=== PATIENT | female | born 1940 | race Caucasian/White ===

== ENCOUNTER 2021-08-08 21:41 | Emergency (ER) | payer OTHER ==
[~2021-08-08] VITALS: Ht 172.7 cm; Wt 90.7 kg
[2021-08-08 22:00] VITALS: BP 157/86
[2021-08-08 23:34] LABS: Albumin 3.3 g/dL (3.4-5.0); BUN/Creatinine Ratio 22.9; Calcium 9.8 mg/dL (8.5-10.1); Magnesium 1.9 mg/dL (1.6-2.6); Potassium 3.4 mmol/L (3.5-5.1)
[2021-08-08 23:35] LABS: INR 1.06 (0.9-1.15)
[2021-08-08 23:36] LABS: Bilirubin, Total 0.4 mg/dL (0.2-1.0); Total Protein 6.2 g/dL (6.4-8.2)
== END 2021-08-09 04:32 | disposition home or self-care (01) ==
LOC: ER 21:41 → EDBD 21:41 → ER 08-09 04:32
DX: R00.2 Palpitations (principal); E78.5 Hyperlipidemia, unspecified; E11.9 Type 2 diabetes mellitus without complications; I10 Essential (primary) hypertension; I48.91 Unspecified atrial fibrillation
CPT/HCPCS: 36415; 71045; 80053; 83735; 84484; 85610; 85730; 93005

== ENCOUNTER 2024-09-24 01:20 | Emergency (ER) | payer OTHER ==
[~2024-09-24] VITALS: Ht 167.6 cm; Wt 95.0 kg
--- NOTE | 2024-09-24 01:33 | ECG ---
[facility] Test Date: 2024-09-24 Test Time: 01:21:28 Pat Name: ZAMZAM STATHAM Department: ED Room: Gender: F Taker Off: TAINA : 1940 Requested By: DAVID COOPER Order Number: [id number] Reading MD: Measurements Intervals [place] Rate: 72 P: 0 MI: 0 QRS: 83 QRSD: 94 T: 25 QT: 424 QTc: 465 Interpretive Statements Atrial flutter Borderline right axis deviation ST depr, consider ischemia, inferior leads Baseline wander in lead(s) V5 Please click the below link to view image of tracing.
--- NOTE | 2024-09-24 01:40 | ED.PDOC ---
HPI Comments 84 year old female presents to the ED via EMS with a chief complaint of chest pain onset today (09/24/24). Per EMS, patient was asleep, woke up due to chest pain, described as a flutter sensation, pain was 4/10. In route to ED, EKG showed a-fib with 70-90 bpm, BP 180/83. Patient states upon ED arrival, chest pain has resolved. She is currently on Lasix, Pradaxa. PMHx a-fib, HTN, HLD, DM insulin dependent. Denies shortness of breath, nausea, vomiting, cough, congestion, fever, chills, dizziness, numbness/tingling. No other symptoms or modifying factors present at this time. Time Seen by MD: :25 Reviewed Notes: Medications, Allergies Allergies: Coded Allergies: NO KNOWN ALLERGIES (Unverified , 09/24/24) Information Source: Patient, Emergency Med Personnel Mode of Arrival: EMS Severity: Moderate Timing: Hours Duration: Since onset Prehospital treatment: None Location: Chest (L) Radiation: No Radiation Quality: Other Onset: While Asleep Cardiac Risk Factors: Hyperlipidemia, HTN, Diabetes PE Risk Factors: None History of: None Modifying Factors: Nothing Vital Signs Vital Signs Date Time Temp Pulse Resp B/P (MAP) Pulse Ox O2 Delivery O2 Flow Rate FiO2 09/24/24 04:00 70 17 158/62 (94) 94 09/24/24 02:07 Room Air* 0 21 09/24/24 01:56 98.0 98.0 Physical Exam PHYSICAL EXAM: General: Awake, alert and oriented. No acute distress. Skin: Skin in warm, dry and intact. Appropriate color for ethnicity. HEENT: The head is normocephalic and atraumatic. Conjunctivae are clear without exudates or hemorrhage. Sclera is non-icteric. EOM are intact. No signs of nystagmus. Eyelids are normal in appearance without swelling or lesions. Oral mucosa is pink and moist Neck: The neck is supple with normal range of motion. No JVD. Cardiac: Heart rate and rhythm are normal. No murmurs, gallops, or rubs are auscultated. Respiratory: No signs of respiratory distress. Lung sounds are clear in all lobes bilaterally without rales, rhonchi, or wheezes. Abdominal: Abdomen is soft, non-tender without distention, guarding or rigidity. Bowel sounds are present and normoactive in all four quadrants. Extremities: Upper and lower extremities are atraumatic in appearance without deformity or edema. Neurological: The patient is awake, alert and oriented to person, place, and time with normal speech. Speech is clear. There is no facial asymmetry. Psychiatric: Appropriate mood and affect. Good judgement and insight. 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 Was a procedure done?: No CP Differential Dx Differential Diagnosis: Other (Differential diagnoses considered include acute ischemic coronary syndrome, aortic dissection, cardiac tamponade, mediastinitis, pulmonary embolus, pneumothorax, tension pneumothorax, esophageal rupture, coronary artery vasospasm, myocarditis, pericarditis, pneumonia, pulmonary edema, esophageal tear, pancreatitis, aortic stenosis, dilated cardiomyopathy, hypertrophic cardiomyopathy, mitral valve prolapse, malignancy, pleuritis, pneumomediastinum, primary pulmonary hypertension, cholecystitis, esophageal spasm, esophagus, gastritis, GERD, peptic ulcer disease, costochondritis, fibromyalgia, rib fracture, herpes zoster, radicular syndromes, thoracic outlet syndrome, somatization.) X-Ray, Labs, Meds, VS Vital Signs Date Time Temp Pulse Resp B/P (MAP) Pulse Ox O2 Delivery O2 Flow Rate FiO2 09/24/24 04:00 70 17 158/62 (94) 94 09/24/24 02:23 58 09/24/24 02:07 63 17 94 Room Air* 0 21 09/24/24 01:56 98.0 66 16 152/57 (88) 94 98.0 09/24/24 01:40 72 09/24/24 01:25 97.8 113 18 180/83 (115) 96 97.8 09/24/24 01:21 72 Lab Test 09/24/24 04:46 09/24/24 02:33 09/24/24 01:35 Range/Units Troponin I High Sensitivity 38 *H 22 19 </=34 ng/L White Blood Count 5.7 4.4-10.8 10^3/uL Red Blood Count 4.19 4.0-5.20 10^6/uL Hemoglobin 11.7 L 12.2-16.2 g/dL Hematocrit 35.2 L 36.0-46.0 % Mean Corpuscular Volume 84.0 80.0-100.0 fL Mean Corpuscular Hemoglobin 27.9 L 28.0-32.0 pg Mean Corpuscular Hemoglobin Concent 33.2 32.0-36.0 g/dL Red Cell Distribution Width 15.2 H 11.8-14.3 % Platelet Count 169 140-450 10^3/uL Mean Platelet Volume 8.0 6.9-10.8 fL Neutrophils (%) (Auto) 71.7 37.0-80.0 % Lymphocytes (%) (Auto) 16.3 10.0-50.0 % Monocytes (%) (Auto) 8.0 0.0-12.0 % Eosinophils (%) (Auto) 3.4 0.0-7.0 % Basophils (%) (Auto) 0.6 0.0-2.0 % Neutrophils # (Auto) 4.1 1.6-8.6 10 ^3/uL Lymphocytes # (Auto) 0.9 0.4-5.4 10 ^3/uL Monocytes # (Auto) 0.5 0-1.3 10 ^3/uL Eosinophils # (Auto) 0.2 0-0.8 10 ^3/uL Basophils # (Auto) 0 0-0.2 10 ^3/uL Nucleated Red Blood Cells 0.0 % Sodium Level 145 136-145 mmol/L Potassium Level 3.6 3.5-5.1 mmol/L Chloride Level 108 H 98-107 mmol/L Carbon Dioxide Level 28 20-31 mmol/L Anion Gap 9 5-15 Blood Urea Nitrogen 19 9-23 mg/dL Creatinine 1.01 0.550-1.02 mg/dL Glomerular Filtration Rate Calc 55 >90 mL/min BUN/Creatinine Ratio 18.8 10.0-20.0 Serum Glucose 130 H 74-106 mg/dL Calcium Level 11.2 H 8.7-10.4 mg/dL B-Type Natriuretic Peptide 111.74 0-100 pg/mL PATIENT: VALERIE JUDGE: [id number]: [id number] : 1940 LOC: ER ROOM / BED: / AGE / SEX: 84 / F ADM STATUS: REG ER SERVICE 0139 ORDERING PHYSICIAN: DAVID COOPER MD PROCEDURE(s): CXR1 - CHEST XRAY 1 VIEW REASON: cp ORDER NUMBER(s): [id number], ACCESSION NUMBER(s): [id number] CHEST RADIOGRAPH Indication: cp Technique: Single frontal view of the chest was obtained COMPARISON: CHEST PORTABLE on DOS: 08/08/21, CXRP on DOS: 08/08/21 FINDINGS: Lines and Tubes: None Lungs: Mild diffuse increased prominence of the pulmonary vasculature. No evid ence of focal consolidation. Pleura: No effusion. No pneumothorax. Cardiomediastinal contours: Cardiomegaly. Atherosclerotic vascular calcifications. Bones: Unremarkable IMPRESSION: 1. No acute disease. Mild diffuse increased prominence of the pulmonary vasculature. 2. Cardiomegaly. ATED BY: SHANTANU SOLIS MD DICTATED DATE/TIME: 09/24/24207 SIGNED BY: SHANTANU SOLIS MD SIGNED DATE/TIME: 09/24/24207 CC: Time of 1ST Reevaluation: 01:55 Reevaluation 1ST: Unchanged Patient Education/Counseling: Need For Follow Up Family Education/Counseling: No Family Present SEPSIS Sepsis Screen Physician Orders Electrocardigram (09/24/24 04:25) Chest Xray 1 View (09/24/24 01:39) Vital Signs Q1HR (09/24/24 01:39) Imaging Transfer Request (09/24/24 05:16) Vital Signs Date Time Temp Pulse Resp B/P (MAP) Pulse Ox O2 Delivery O2 Flow Rate FiO2 09/24/24 04:00 70 17 158/62 (94) 94 09/24/24 02:23 58 09/24/24 02:07 63 17 94 Room Air* 0 21 09/24/24 01:56 98.0 66 16 152/57 (88) 94 98.0 09/24/24 01:40 72 09/24/24 01:25 97.8 113 18 180/83 (190) 96 97.8 09/24/24 01:21 72 Laboratory Tests Test 09/24/24 01:35 White Blood Count 5.7 10^3/uL (4.4-10.8) Departure 1 Departure Time of Disposition: 03:15 Impression: Primary Impression: Chest pain Disposition: 02 SHORT TERM HOSPITAL Comments MDM: 84-year-old female with multiple risk factors with chest pain @[address] Tavares at [facility] (Case #[id number]) Extensive evaluation was performed in attempt to identify or rule out: (See differential diagnosis section) The following tests were ordered, and results were reviewed by me and discussed with patient: (See diagnostic results section) The following test were independently interpreted by me: EKG I reviewed and agreed with the following test results read by other providers: Chest x-ray I reviewed the following notes from the pt's past medical encounters: Encounter July 2021 for weakness Additional information was gathered from interviewing the following independent historians: EMS personnel Discussion of management or test interpretation with external physician/other qualified health hospice patient care secretary: Yes Addressed an acute or chronic illness that poses a threat to life or bodily function: Chest pain Decision regarding hospitalization or escalation of hospital level of care: Risk and benefits of admission for further treatment of patient's condition was considered. Due to patient's current clinical condition, high risk of decline and poor outcome if discharged and need for further inpatient management and monitoring, patient will be admitted to the hospital. Drug therapy requiring intensive monitoring for toxicity: N/A Parenteral controlled substances: N/A Decision regarding elective major surgery with identified patient or procedure risk factors: N/A Decision regarding emergency major surgery: N/A Decision not to resuscitate or to de-escalate care because of poor prognosis: N/A Diagnosis or treatment significantly limited by social determinants of health: N/A Critical Care Note Critical Care Time?: No Stability Stability form required: No Heart Score Heart Score: Heart Score Response (Comments) Value History Moderate Suspicious 1 EKG Normal 0 Age >65 2 Risk Factors >3 or Hx ASHD 2 Troponin Normal limit 0 Total 5 I personally scribed for DAVID COOPER MD ([email or web address]) on 09/24/24 at 01:40. Electronically submitted by Glenda Yanez ([email or web address]). DAVID COOPER MD Sep 24, 2024 01:40
[2024-09-24 01:50] LABS: Hematocrit 35.2 % (36.0-46.0); Hemoglobin 11.7 g/dL (12.2-16.2); Mean Corpuscular Hemoglobin 27.9 pg (28.0-32.0); Mean Corpuscular Volume 84.0 fL (80.0-100.0); Nucleated Red Blood Cells % 0.0 %
[2024-09-24 02:02] LABS: Calcium 11.2 mg/dL (8.7-10.4); Chloride 108 mmol/L (98-107); Potassium 3.6 mmol/L (3.5-5.1); Sodium 145 mmol/L (136-145)
[2024-09-24 02:03] LABS: Anion Gap 9 (5-15); Carbon Dioxide 28 mmol/L (20-31)
[2024-09-24 02:07] VITALS: PULSE 63; RESP 17; O2SAT 94
[2024-09-24 02:08] LABS: Glucose 130 mg/dL (74-106)
--- NOTE | 2024-09-24 02:10 | DVH ---
CHEST RADIOGRAPH Indication: cp Technique: Single frontal view of the chest was obtained COMPARISON: CHEST PORTABLE on DOS: 08/08/21, CXRP on DOS: 08/08/21 FINDINGS: Lines and Tubes: None Lungs: Mild diffuse increased prominence of the pulmonary vasculature. No evidence of focal consolid ation. Pleura: No effusion. No pneumothorax. Cardiomediastinal contours: Cardiomegaly. Atherosclerotic vascular calcifications. Bones: Unremarkable IMPRESSION: 1. No acute disease. Mild diffuse increased prominence of the pulmonary vasculature. 2. Cardiomegaly.
[2024-09-24 03:52] LABS: BUN/Creatinine Ratio 18.8 (10.0-20.0); Blood Urea Nitrogen 19 mg/dL (9-23)
--- NOTE | 2024-09-24 05:09 | ECG ---
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
[2024-09-24 06:19] VITALS: BP 165/54; PULSE 70; RESP 18; TEMP 98.1; O2SAT 95
== END 2024-09-24 06:54 | disposition short-term general hospital (02) ==
LOC: EDBD 01:20 → ER 01:20
DX: R07.89 Other chest pain (principal); I48.91 Unspecified atrial fibrillation; E11.9 Type 2 diabetes mellitus without complications; E78.5 Hyperlipidemia, unspecified; I10 Essential (primary) hypertension; Z79.899 Other long term (current) drug therapy; Z79.4 Long term (current) use of insulin; Z79.01 Long term (current) use of anticoagulants
CPT/HCPCS: 36415; 71045; 80048; 83880; 84484; 85025; 93005

== ENCOUNTER 2024-12-03 06:22 | Inpatient (IN) | payer OTHER ==
[~2024-12-03] VITALS: Ht 175.3 cm; Wt 120.7 kg
[2024-12-03] VITALS (16 sets, daily range): BP systolic 105–125; BP diastolic 55–62; PULSE 60–95; RESP 14–24; TEMP 97.3–97.6; O2SAT 84–100
--- NOTE | 2024-12-03 06:30 | ED.PDOC ---
SOB-HPI HPI Comments 84 y/o F, with PMHx of AFib, DM, HLD, and HTN is BIBA for CC of shortness of breath. EMS reports, patient is coming from home where she c/o shortness of breath sudden onset, this morning (12/03/24) following trying to vomiting. Patient relays, she had x1 episode of emesis appearing to be food content related. Patient endorses, second episode of dry heaving feeling as if "vomit is stuck in my throat". Patient denies chest pain, cough, sore-throat, fever, or palpitations. No other symptoms or modifying factors are present at this time. 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 Hx Family History Family History: Reviewed,noncontributory to illness Social History Smoker: Non-Smoker Alcohol: Denies ETOH Use Drugs: Denies Drug Use Lives In: Home Constitutional: denies: chills, diaphoresis, fatigue, fever, malaise, sweats, weakness, others EENTM: denies: blurred vision, double vision, ear bleeding, ear discharge, ear drainage, ear pain, ear ringing, eye pain, eye redness, hearing loss, mouth pain, mouth swelling, nasal discharge, nose bleeding, nose congestion, nose pain, photophobia, tearing, throat pain, throat swelling, voice changes, others Respiratory: reports: shortness of breath; denies: cough, hemoptysis, orthopnea, SOB at rest, SOB with excertion, stridor, wheezing, others Cardiovascular: denies: chest pain, dizzy spells, diaphoresis, Dyspnea on exertion, edema, irregular heart beat, left arm pain, lightheadedness, palpitations, PND, syncope, others Gastrointestinal: denies: abdomen distended, abdominal pain, blood streaked bowels, constipated, diarrhea, dysphagia, difficulty swallowing, hematemesis, melena, nausea, poor appetite, poor fluid intake, rectal bleeding, rectal pain, vomiting, others Genitourinary: denies: abnormal vagina bleeding, burning, dyspareunia, dysuria, flank pain, frequency, hematuria, incontinence, pain, , vagina discharge, urgency, others Neurological: denies: dizziness, fainting, headache, left sided numbness, left sided weakness, numbness, paresthesia, pre-existing deficit, right sided numbness, right sided weakness, seizure, speech problems, tingling, tremors, weakness, others Musculoskeletal: denies: back pain, gout, joint pain, joint swelling, muscle pain, muscle stiffness, neck pain, others Integumetry: denies: bruises, change in color, change in hair/nails, dryness, laceration, lesions, lumps, rash, wounds, others Allergic/Immunocompromised: denies: Difficulty Healing, Frequent Infections, Hives, Itching, others Hematologic/Lymphatic: denies: anemia, blood clots, easy bleeding, easy bruising, swollen glands, others Endocrine: denies: excessive hunger, excessive sweating, excessive thirst, excessive urination, flushing, intolerance to cold, intolerance to heat, unexplained weight gain, unexplained weight loss, others Psychiatric: denies: anxiety, bipolar disorder, depression, hopeless, panic disorder, schizophrenia, sleepless, suicidal, others All Other Systems: Reviewed and Negative Physical Exam General Appearance: No Apparent Distress, Obese HEENT: Normal ENT Inspection, Pharynx Normal Neck: Full Range of Motion, Non-Tender, Normal, Normal Inspection Respiratory: Chest Non-Tender, Lungs Clear, No Accessory Muscle Use, No Re spiratory Distress, Normal Breath Sounds Cardiovascular: No Edema, No Murmur, No Gallop, Normal Peripheral Pulses, Regular Rate/Rhythm Breast Exam: Deferred Gastrointestinal: No Organomegaly, Non Tender, No Pulsatile Mass, Normal Bowel Sounds, Soft Genitalia: Deferred Pelvic: Deferred Rectal: Deferred Extremities: No calf tenderness, Normal capillary refill, Normal inspection, Normal range of motion, Non-tender, No pedal edema Musculoskeletal : Apperance: Normal Neurologic: Alert, industrial 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 Was a procedure done?: No Differential Dx Differential Diagnosis: Asthma, Bronchitis, Pneumonia, Pulmonary Embolism, Sinusitis, Pharyngitis, URI X-Ray, Labs, Meds, VS Vital Signs Date Time Temp Pulse Resp B/P (MAP) Pulse Ox O2 Delivery O2 Flow Rate FiO2 12/03/24 07:25 81 23 96 Room Air* 0 21 12/03/24 07:25 97.6 81 23 152/89 (110) 96 97.6 12/03/24 06:47 98.0 86 18 155/95 (115) 96 98.0 12/03/24 06:47 86 18 96 Room Air* 0 21 12/03/24 06:25 97.6 92 20 150/68 94 97.6 12/03/24 06:25 87 Lab Test 12/03/24 07:45 12/03/24 06:50 Range/Units Troponin I High Sensitivity 289 *H 172 *H </=34 ng/L White Blood Count 6.5 4.4-10.8 10^3/uL Red Blood Count 4.16 4.0-5.20 10^6/uL Hemoglobin 11.6 L 12.2-16.2 g/dL Hematocrit 34.6 L 36.0-46.0 % Mean Corpuscular Volume 83.2 80.0-100.0 fL Mean Corpuscular Hemoglobin 27.8 L 28.0-32.0 pg Mean Corpuscular Hemoglobin Concent 33.4 32.0-36.0 g/dL Red Cell Distribution Width 15.1 H 11.8-14.3 % Platelet Count 168 140-450 10^3/uL Mean Platelet Volume 8.4 6.9-10.8 fL Neutrophils (%) (Auto) 82.7 H 37.0-80.0 % Lymphocytes (%) (Auto) 10.9 10.0-50.0 % Monocytes (%) (Auto) 4.4 0.0-12.0 % Eosinophils (%) (Auto) 1.6 0.0-7.0 % Basophils (%) (Auto) 0.4 0.0-2.0 % Neutrophils # (Auto) 5.4 1.6-8.6 10 ^3/uL Lymphocytes # (Auto) 0.7 0.4-5.4 10 ^3/uL Monocytes # (Auto) 0.3 0-1.3 10 ^3/uL Eosinophils # (Auto) 0.1 0-0.8 10 ^3/uL Basophils # (Auto) 0 0-0.2 10 ^3/uL Nucleated Red Blood Cells 0.1 % Sodium Level 142 136-145 mmol/L Potassium Level 4.1 3.5-5.1 mmol/L Chloride Level 107 98-107 mmol/L Carbon Dioxide Level 24 20-31 mmol/L Anion Gap 11 5-15 Blood Urea Nitrogen 19 9-23 mg/dL Creatinine 1.06 H 0.550-1.02 mg/dL Glomerular Filtration Rate Calc 51 >90 mL/min BUN/Creatinine Ratio 17.9 10.0-20.0 Serum Glucose 321 H 74-106 mg/dL Calcium Level 11.0 H 8.7-10.4 mg/dL [place] [id number] Ph: [phone] DIAGNOSTIC IMAGING Diagnostic Imaging Report : [id number] Signed PATIENT: ZAMZAM JUDGE ACCT: [id number] UNIT: [id number] : 1940 LOC: ER ROOM / BED: / AGE / SEX: 84 / F ADM STATUS: REG ER SERVICE 6 ORDERING PHYSICIAN: BERRY GRAFF MD PROCEDURE(s): CXRP - CHEST PORTABLE REASON: sob ORDER NUMBER(s): [id number], ACCESSION NUMBER(s): [id number] CHEST RADIOGRAPH Indication: sob Technique: Single frontal view of the chest was obtained COMPARISON: XY CHEST XRAY 1 VIEW on DOS: 09/24/24, CHEST PORTABLE on DOS: 08/08/21, CXRP on DOS: 08/08/21 FINDINGS: Lines and Tubes: None Lungs: Mild diffuse increased prominence of the pulmonary vasculature without evidence of focal consolidation. Pleura: No effusion. No pneumothorax. Cardiomediastinal contours: Cardiomegaly. Bones: Unremarkable IMPRESSION: 1. Cardiomegaly with mild pulmonary vascular congestion. ATED BY: SHANTANU SOLIS MD DICTATED DATE/TIME: 12/03/24654 SIGNED BY: SHANTANU SOLIS MD SIGNED DATE/TIME: 12/03/24 0655 CC: Time of 1ST Reevaluation: 07:05 Reevaluation 1ST: Unchanged Patient Education/Counseling: Diagnosis, Treatment Family Education/Counseling: No Family Present SEPSIS Sepsis Screen Physician Orders Chest Portable (12/03/24 06:27) Troponin-I Hs (12/03/24 09:27) Electrocardigram (12/03/24 07:27) Electrocardigram (12/03/24 09:27) * Cardiology Consult (12/03/24 08:34) Vital Signs Date Time Temp Pulse Resp B/P (MAP) Pulse Ox O2 Delivery O2 Flow Rate FiO2 12/03/24 07:25 81 23 96 Room Air* 0 21 12/03/24 07:25 97.6 81 23 152/89 (110) 96 97.6 12/03/24 06:47 98.0 86 18 155/95 (115) 96 98.0 12/03/24 06:47 86 18 96 Room Air* 0 21 12/03/24 06:25 97.6 92 20 150/68 94 97.6 12/03/24 06:25 87 Laboratory Tests Test 12/03/24 06:50 White Blood Count 6.5 10^3/uL (4.4-10.8) Departure 1 Departure Time of Disposition: 09:01 ([place] Authorization to Admit at [facility]: [id number] Patient presented with shortness of breath that was concerning for possible STEMI, ACS, PE, Pneumonia, Muscle Strain, COPD, Dissection. Data: 1. I ordered and reviewed the result of at least 3 labs including a CBC, BMP, and Troponin. 2. I independently interpreted the following tests: EKG which shows sinus arrhythmia and Chest X-ray which shows vascular congestion.Risk:This patient has a high risk of morbidity due to further diagnostic testing or treatment and may suffer from an acute cardiac or respiratory disorder. Workup reveals concern for ACS and patient should be admitted for further workup and possible expert consultation. ) Impression: Primary Impression: Shortness of breath Additional Impression: Elevated troponin Disposition: ADMITTED INPATIENT Admit to: [facility] Condition: Guarded Critical Care Note Critical Care Time?: Yes Critical care comment: Acute chest pain Authorized and Performed by: Berry Graff MD Total critical care time: Approximately 39 minutes Due to a high probability of clinically significant, life threatening deterioration, the patient required my highest level of preparedness to interven e emergently and I personally spent this critical care time directly and personally managing the patient. This critical care time included obtaining a history; examining the patient; pulse oximetry; ordering and review of studies; arranging urgent treatment with development of a management plan; evaluation of patient's response to treatment; frequent reassessment; and, discussions with other providers. This critical care time was performed to assess and manage the high probability of imminent, life-threatening deterioration that could result in multi-organ failure. It was exclusive of separately billable procedures and treating other patients and teaching time. Please see my other sections and the rest of the note for further information on patient assessment and treatment. Stability Stability form required: No Heart Score Heart Score: Heart Score Response (Comments) Value History Moderate Suspicious 1 EKG N/A 0 Age >65 2 Risk Factors 1 or 2 risk factors 1 Troponin N/A 0 Total 4 I personally scribed for BERRY GRAFF MD ([email or web address]) on 12/03/24 at 06:30. Electronically submitted by Goldie Hutton ([email or web address]). I personally scribed for BERRY GRAFF MD ([email or web address]) on 12/03/24 at 06:41. Electronically submitted by Goldie Hutton ([email or web address]). I personally scribed for BERRY GRAFF MD ([email or web address]) on 12/03/24 at 06:57. Electronically submitted by Goldie Hutton ([email or web address]). I personally scribed for BERRY GRAFF MD ([email or web address]) on 12/03/24 at 07:01. Electronically submitted by Goldie Hutton ([email or web address]). BERRY GRAFF MD Dec 03, 2024 06:30
--- NOTE | 2024-12-03 06:57 | ECG ---
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
--- NOTE | 2024-12-03 06:58 | DVH ---
CHEST RADIOGRAPH Indication: sob Technique: Single frontal view of the chest was obtained COMPARISON: XY CHEST XRAY 1 VIEW on DOS: 09/24/24, CHEST PORTABLE on DOS: 08/08/21, CXRP on DOS: 2 FINDINGS: Lines and Tubes: None Lungs: Mild diffuse increased prominence of the pulmonary vasculature without evidence of focal conso lidation. Pleura: No effusion. No pneumothorax. Cardiomediastinal contours: Cardiomegaly. Bones: Unremarkable IMPRESSION: 1. Cardiomegaly with mild pulmonary vascular congestion.
[2024-12-03 07:23] LABS: Chloride 107 mmol/L (98-107); Potassium 4.1 mmol/L (3.5-5.1); Sodium 142 mmol/L (136-145)
[2024-12-03 07:24] LABS: Anion Gap 11 (5-15); Carbon Dioxide 24 mmol/L (20-31)
[2024-12-03 07:30] LABS: BUN/Creatinine Ratio 17.9 (10.0-20.0); Blood Urea Nitrogen 19 mg/dL (9-23)
[2024-12-03 07:32] LABS: Calcium 11.0 mg/dL (8.7-10.4); Glucose 321 mg/dL (74-106)
[2024-12-03 07:35] LABS: Hematocrit 34.6 % (36.0-46.0); Hemoglobin 11.6 g/dL (12.2-16.2); Mean Corpuscular Hemoglobin 27.8 pg (28.0-32.0); Mean Corpuscular Volume 83.2 fL (80.0-100.0); Nucleated Red Blood Cells % 0.1 %
[2024-12-03] MEDS ORDERED: DABI110C2 PO (09:24)
[2024-12-03] MEDS ORDERED: MET50T PO (09:24)
[2024-12-03] MEDS ORDERED: ATOR20TA50 PO (09:24)
[2024-12-03] MEDS ORDERED: LISI20TA56 PO (09:24)
[2024-12-03] MEDS: FUROSEMIDE 40 MG/4 ML VIAL IV ONE (09:25)
[2024-12-03] MEDS: MORPHINE SULFATE 4 MG/ML SYR/VIAL IV ONE (09:25)
[2024-12-03] MEDS: ONDANSETRON HCL 4 MG/2 ML VIAL IV ONE (09:26)
[2024-12-03] MEDS ORDERED: MORPHINE SULFATE INJ 2 MG/ml SYRG IV PRN (09:30)
[2024-12-03] MEDS ORDERED: ONDANSETRON HCL 4 MG/2 ML VIAL IV PRN (09:30)
[2024-12-03] MEDS ORDERED: NITROGLYCERIN 0.4 MG SL TAB SL PRN (09:30)
[2024-12-03] MEDS ORDERED: ACETAMINOPHEN 325 MG TAB PO PRN (09:30)
[2024-12-03] MEDS ORDERED: DEXTROSE (50%) 50ML SYRG IV PRN (09:30)
--- NOTE | 2024-12-03 09:32 | DVHHP2 ---
History of Present Illness Reason for Visit: SOB History of Present Illness Dave Chase is an 84-year-old female with past medical history of AFib, diabetes, hyperlipidemia, hypertension, lymphedema, and sleep apnea who presents to the ED with shortness of breath that started last night around 9:00 p.m while at home asleep. She reports that she does not use oxygen at home. She also states that she does walk and uses a walker but gets short of breath with short distances. Patient states that there are no triggering or alleviating factors. She also states that she feels that there is something stuck in her throat and had 1 episode of emesis. She states that she can not describe the color. Patient states that she lives at home alone in the back house. She denies any recent trauma or injury, recent sick contacts, recent travels, recent ingestion of spoiled food, fever, chills, lightheadedness, weakness, dizziness, chest pain, abdominal pain, nausea, diarrhea, or urinary symptoms. Cardiovascular: AFIB, HTN, hyperipidemia Endocrine: Diabetes Past Medical History Lymphedema Sleep apnea Past Surgical History: None Family History: Cancer, Other (Dad with multiple sclerosis and heart disease. Mom with myasthenia gravis and heart disease. Grandmother with breast cancer.) Smoke: No ALCOHOL: none Drugs: None Lives: Alone Domestic Violence: Neg Review of Systems Respiratory: Shortness of breath Gastrointestinal: Vomiting Allergies: Coded Allergies: NO KNOWN ALLERGIES (Unverified , 09/24/24) Exam Vital Signs Vital Signs Date Time Temp Pulse Resp B/P (MAP) Pulse Ox O2 Delivery O2 Flow Rate FiO2 12/03/24 07:25 81 23 96 Room Air* 0 21 12/03/24 07:25 97.6 152/89 (110) 97.6 General Appearance: Alert, Oriented X3, Cooperative, mild distress HEENT: Atraumatic, PERRLA, EOMI, Mucous membr. moist/pink Cardiovascular: Normal S1, Normal S2 Abdominal: Normal bowel sounds, Soft Skin: No significant lesion Neuro: Normal speech, Normal tone, Sensation intact Psych/Mental Status: Mental status NL, Mood NL Labs/Xrays Labs Test 12/03/24 07:45 12/03/24 06:50 Range/Units Troponin I High Sensitivity 289 *H </=34 ng/L White Blood Count 6.5 4.4-10.8 10^3/uL Red Blood Count 4.16 4.0-5.20 10^6/uL Hemoglobin 11.6 L 12.2-16.2 g/dL Hematocrit 34.6 L 36.0-46.0 % Mean Corpuscular Volume 83.2 80.0-100.0 fL Mean Corpuscular Hemoglobin 27.8 L 28.0-32.0 pg Mean Corpuscular Hemoglobin Concent 33.4 32.0-36.0 g/dL Red Cell Distribution Width 15.1 H 11.8-14.3 % Platelet Count 168 140-450 10^3/uL Mean Platelet Volume 8.4 6.9-10.8 fL Neutrophils (%) (Auto) 82.7 H 37.0-80.0 % Lymphocytes (%) (Auto) 10.9 10.0-50.0 % Monocytes (%) (Auto) 4.4 0.0-12.0 % Eosinophils (%) (Auto) 1.6 0.0-7.0 % Basophils (%) (Auto) 0.4 0.0-2.0 % Neutrophils # (Auto) 5.4 1.6-8.6 10 ^3/uL Lymphocytes # (Auto) 0.7 0.4-5.4 10 ^3/uL Monocytes # (Auto) 0.3 0-1.3 10 ^3/uL Eosinophils # (Auto) 0.1 0-0.8 10 ^3/uL Basophils # (Auto) 0 0-0.2 10 ^3/uL Nucleated Red Blood Cells 0.1 % Sodium Level 142 136-145 mmol/L Potassium Level 4.1 3.5-5.1 mmol/L Chloride Level 107 98-107 mmol/L Carbon Dioxide Level 24 20-31 mmol/L Anion Gap 11 5-15 Blood Urea Nitrogen 19 9-23 mg/dL Creatinine 1.06 H 0.550-1.02 mg/dL Glomerular Filtration Rate Calc 51 >90 mL/min BUN/Creatinine Ratio 17.9 10.0-20.0 Serum Glucose 321 H 74-106 mg/dL Calcium Level 11.0 H 8.7-10.4 mg/dL CHEST RADIOGRAPH Indication: sob Technique: Single frontal view of the chest was obtained COMPARISON: XY CHEST XRAY 1 VIEW on DOS: 09/24/24, CHEST PORTABLE on DOS: 08/08/21, CXRP on DOS: 08/08/21 FINDINGS: Lines and Tubes: None Lungs: Mild diffuse increased prominence of the pulmonary vasculature without evidence of focal consolidation. Pleura: No effusion. No pneumothorax. Cardiomediastinal contours: Cardiomegaly. Bones: Unremarkable IMPRESSION: 1. Cardiomegaly with mild pulmonary vascular congestion. SEPSIS Sepsis Screen Date sepsis recognized/suspect: Dec 03, 2024 Time Sepsis recognized/suspect: 724 Recent Procedure: No On Antibiotic Therapy: No Respiratory Rate >20: No Heart Rate >90: No Temp<36 C (96.8 F) or >38.3 C: No SBP <90 or MAP <65 mmHG: No New Acute Mental Status Change: No Is the patient on CPAP, BIPAP,: No Physician Orders Chest Portable (12/03/24 06:27) Troponin-I Hs (12/03/24 09:27) Electrocardigram (12/03/24 07:27) Electrocardigram (12/03/24 09:27) * Cardiology Consult (12/03/24 08:34) Vital Signs Date Time Temp Pulse Resp B/P (MAP) Pulse Ox O2 Delivery O2 Flow Rate FiO2 12/03/24 07:25 81 23 96 Room Air* 0 21 12/03/24 07:25 97.6 81 23 152/89 (110) 96 97.6 12/03/24 06:47 98.0 86 18 155/95 (115) 96 98.0 12/03/24 06:47 86 18 96 Room Air* 0 21 12/03/24 06:25 97.6 92 20 150/68 94 97.6 12/03/24 06:25 87 Laboratory Tests Test 12/03/24 06:50 White Blood Count 6.5 10^3/uL (4.4-10.8) Assessment/Plan Assessment/Plan Assessment Elevated troponins secondary to ACS versus PE versus SIRS/sepsis versus demand ischemia Acute hypoxic respiratory failure and supportive oxygen Diabetes CANDE likely prerenal Hypercalcemia Cardiomegaly History of AFib History of hyperlipidemia History of hypertension History of sleep apnea History of lymphedema Plan Admit to tele Aspirin + statin Trend troponins D-dimer Antiemetics Pain management Duo nebs Supportive oxygen Lactic Hemoglobin A1c ISS and Accu-Cheks Diuretics Echo BNP EKG Chest x-ray noted Diet Home medications reconciled-patient on dabigatran PUD prophylaxis-not indicated no history of GERD or GI bleed Discussed plan of care with patient and [place] [id number] Preventive counseling healthy eating habits, physical activity, and regular checkups Plan discussed with: Patient Date of Service: Dec 03, 2024 Billing Provider: BOSTON HOYT Common Visit Codes: [id number] INP/OBS CARE (HIGH) Secondary Visit Codes: [id number] COUNSELING IND BOSTON HOYT Dec 03, 2024 09:32
[2024-12-03] MEDS: IPRATROPIUM BROM 0.5 MG/2.5ML INH SOL ONE (09:54)
[2024-12-03] MEDS: ALBUTEROL SULF 2.5 MG/0.5ML(0.5%) NEB SOLN ONE (09:55)
[2024-12-03] MEDS ORDERED: ENOXAPARIN SOD 40 MG/0.4 ML SYRINGE SC SCH (10:00)
[2024-12-03] MEDS ORDERED: DABIGATRAN ETEXILATE MESYLATE 110 MG PO SCH (10:00)
[2024-12-03] MEDS ORDERED: DABIGATRAN 75 MG CAP PO SCH (10:27)
[2024-12-03 11:17] LABS: Urine Protein, UAD TRACE (Negative)
[2024-12-03 11:29] LABS: Opiate Scree,Urine Neg (NEGATIVE)
[2024-12-03] MEDS: InsuLIN REG 1unit/0.01ml Soln (100units/ml) SC SCH (11:30)
[2024-12-03 11:37] LABS: Amphetamine Screen, Urine Neg (NEGATIVE); Barbiturate Scree,Urine Neg (NEGATIVE); Benzodiazephine Screen, Urine Neg (NEGATIVE); Cannabinoid Screen, Urine Neg (NEGATIVE); Cocaine Screen, Urine Neg (NEGATIVE); Phencyclidine Screen, Urine Neg (NEGATIVE)
[2024-12-03] MEDS: ACCU-CHEK COMFORT CURVE STRIP VI SCH (11:41)
[2024-12-03] MEDS: ATORVASTATIN 20 MG TAB PO SCH (11:45)
[2024-12-03] MEDS: LISINOPRIL 20 MG TAB PO SCH (11:46)
[2024-12-03] MEDS: FUROSEMIDE 40 MG/4 ML VIAL IV SCH (11:47)
[2024-12-03] MEDS: METOPROLOL TARTRATE 50 MG TAB PO SCH (11:47)
[2024-12-03] MEDS: MORPHINE SULFATE INJ 2 MG/ml SYRG IV PRN (12:03)
--- NOTE | 2024-12-03 12:31 | DVHINCON2 ---
Date Seen: Dec 03, 2024 Referring Physician MD Lorenzo Reason for Consultation SOB History of Present Illness This is a pleasant 84-year-old female who presented to the emergency room via EMS with a chief complaint of shortness of breath since last night at 10:00 p.m.. The patient complains of a sudden onset of shortness of breath associated with substernal pressure radiating to the throat area and associated with nausea. States initial symptoms developed approximately two months ago but had gotten progressively worse during the past couple of days. He follows up in the outpatient setting with the primary hydrology teacher undergoing a nonischemic Cardiolite stress test two weeks ago. She has undergone multiple 12 lead electrocardiogram revealing sinus rhythm with progressive global ST segment changes. Troponin levels are trending up significantly. Significant medical history includes paroxysmal atrial fibrillation on Pradaxa b.i.d./metoprolol, hypertension, dyslipidemia, insulin-dependent diabetes mellitus, obstructive sleep apnea, lymphedema, remote history of tobacco use including 13 pack-years, and obesity. Past Medical History Past medical history reviewed. No other significant than mentioned above. Past Surgical History Past Surgical history reviewed. No other significant than mentioned above. Family History Family history reviewed. Social History Denies the use of illicit drugs, alcohol, or tobacco use. Allergies: Coded Allergies: NO KNOWN ALLERGIES (Unverified , 12/03/24) Home Meds Reported Medications Lisinopril (Lisinopril) 20 Mg Tab, 1 TAB PO DAILY 12/03/24 Metoprolol Tartrate (LOPRESSOR TABLET) 50 Mg Tb, 1 TAB PO BID 12/03/24 Atorvastatin Calcium (ATORVASTATIN CALCIUM) 20 Mg Tab, 1 TAB PO DAILY 12/03/24 Dabigatran Etexilate Mesylate (Dabigatran Etexilate) 110 Mg Cap, 110 MG PO DAILY 12/03/24 Home Meds Home medications reviewed. Current Medications Current Medications Medications (Trade) Dose Ordered Sig/Jorden Route PRN Reason Start Time Stop Time Status Last Admin Acetaminophen/ Hydrocodone Bitart (Estero 5/325MG Tab) 1 tab Q4HP PRN PO MODERATE PAIN (4-6 PAIN SCALE) 12/03/24 09:30 Ondansetron HCl (Zofran) 4 mg Q4HP PRN IV NAUSEA / VOMITING 12/03/24 09:30 Enoxaparin Sodium (Lovenox) 40 mg DAILY SC 12/03/24 10:00 12/03/24 09:26 DC Acetaminophen (Tylenol Tablet) 650 mg Q6HP PRN PO PAIN SCALE 1-3 OR TEMP>100.4 12/03/24 09:30 Morphine Sulfate 2 mg Q4HPRN PRN IV SEVERE PAIN (7-10 PAIN SCALE) 12/03/24 09:30 Nitroglycerin (Ntrostat Sublingual) 0.4 mg Q5MINP PRN SL FOR CHEST PAIN 12/03/24 09:30 Morphine Sulfate 2 mg Q30M PRN IV FOR CHEST PAIN 12/03/24 09:30 12/03/24 12:03 Diagnostic Test (Pha) (Accu-Chek Comfort Curve T) 1 strip ACHS 12/03/24 11:30 12/03/24 11:41 Insulin Human Regular (InsuLIN R) ACHS SC 12/03/24 11:30 Dextrose 50 ml UD PRN IV Blood Sugar LESS THAN 60 12/03/24 09:30 Atorvastatin Calcium (Lipitor) 20 mg DAILY PO 12/03/24 10:00 12/03/24 11:45 Lisinopril (Zestril Tablet) 20 mg DAILY PO 12/03/24 10:00 12/03/24 11:46 Metoprolol Tartrate (Lopressor Tablet) 50 mg BID PO 12/03/24 10:00 12/03/24 11:47 Patient Own Medication 110 mg BID PO 12/03/24 10:00 12/03/24 10:27 DC Furosemide (Lasix Injection) 40 mg DAILY IV 12/03/24 10:00 Albuterol (Ventolin Medneb) 2.5 mg Q4HWA [facility] 12/03/24 10:00 Ipratropium [place] (Atrovent Medneb) 0.5 mg Q4HWA [facility] 12/03/24 10:00 Aspirin 81 mg DAILY PO 12/03/24 10:00 Dabigatran (Pradaxa Capsule) 150 mg BID PO 12/03/24 10:27 12/03/24 11:21 DC Review of Systems Constitutional: No symptom reported Ears, Nose, & Throat: No symptom reported Eyes: No symptom reported Neurological: No symptoms reported Pulmonary/Respiratory: SOB Cardiovascular: Chest pain Gastrointestinal: No symptom reported Genitourinary: No symptom reported Musculoskeletal: No symptom reported Skin: No symptom reported Psychiatric: No symptom reported Endocrine: No symptom reported Hemotologic/Lymphatic: No symptom reported Vital Signs Vital Signs Date Time Temp Pulse Resp B/P (MAP) Pulse Ox O2 Delivery O2 Flow Rate FiO2 12/03/24 12:03 97 20 157/81 12/03/24 10:01 94 12/03/24 09:59 Nasal Cannula* 2 28 12/03/24 07:25 97.6 97.6 Physical Exam General Appearance: Cooperative. Well developed. Obese. In no acute distress Head Exam: Normal inspection Neck Exam: Normal inspection. Non-tender. Normal alignment Pulmonary/Respiratory: Chest non-tender. Diminished bilateral breath sounds Cardiovascular/Chest: Regular rate and rhythm. S1, S2. Sinus rhythm with progressive global ST-T segment changes. No murmurs. No JVD. Peripheral Pulses: 2+ Radial (R). 2+ Radial (L). 2+ Pedal (R). 2+ Pedal (L) Abdominal Exam: Normal bowel sounds. Soft. Nontender. No hepatospenomegaly. No masses Ankle Exam: Negative ankle edema Lower extremities: Negative lower extremity edema Neuro/Mental Status: A&O x4. Coherent Thoughts/Psych: Normal thought pattern. Appropriate mood and affect. Good judgement and insight Appearance: In no acute distress Skin Exam: Normal inspection. Normal color. Warm. Dry Labs/Diagnostic Data Labs Test 12/03/24 11:40 12/03/24 10:58 12/03/24 10:05 12/03/24 06:50 Range/Units POC Glucose 219 H 70-106 mg/dl Urine Color Light-yellow Yellow Urine Clarity Clear Clear Urine pH 5.0 5.0-9.0 Urine Specific [place] 1.013 1.001-1.035 Urine Protein Trace H Negative Urine Ketones Negative Negative Urine Blood Negative Negative /uL Urine Nitrite Negative Negative Urine Bilirubin Negative Negative Urine Urobilinogen Normal Negative mg/dL Urine Leukocyte Esterase 1+ Negative /uL Urine RBC 1 0 - 4 /hpf Urine Microscopic WBC 20 H 0-5 /HPF Urine Squamous Epithelial Cells Few <5 /hpf Urine Bacteria None seen None Seen /hpf Urine Glucose 3+ H Normal mg/dL Urine Opiates Screen Neg NEGATIVE Urine Fentanyl Screen Neg NEGATIVE Urine Barbiturates Screen Neg NEGATIVE Urine Phencyclidine Screen Neg NEGATIVE Urine Amphetamines Screen Neg NEGATIVE Urine Benzodiazepines Screen Neg NEGATIVE Urine Cocaine Screen Neg NEGATIVE Urine Cannabinoids Screen Neg NEGATIVE D-Dimer, Quantitative 0.39 0.0-0.49 mg/L FEU Troponin I High Sensitivity 1627 *H </=34 ng/L White Blood Count 6.5 4.4-10.8 10^3/uL Red Blood Count 4.16 4.0-5.20 10^6/uL Hemoglobin 11.6 L 12.2-16.2 g/dL Hematocrit 34.6 L 36.0-46.0 % Mean Corpuscular Volume 83.2 80.0-100.0 fL Mean Corpuscular Hemoglobin 27.8 L 28.0-32.0 pg Mean Corpuscular Hemoglobin Concent 33.4 32.0-36.0 g/dL Red Cell Distribution Width 15.1 H 11.8-14.3 % Platelet Count 168 140-450 10^3/uL Mean Platelet Volume 8.4 6.9-10.8 fL Neutrophils (%) (Auto) 82.7 H 37.0-80.0 % Lymphocytes (%) (Auto) 10.9 10.0-50.0 % Monocytes (%) (Auto) 4.4 0.0-12.0 % Eosinophils (%) (Auto) 1.6 0.0-7.0 % Basophils (%) (Auto) 0.4 0.0-2.0 % Neutrophils # (Auto) 5.4 1.6-8.6 10 ^3/uL Lymphocytes # (Auto) 0.7 0.4-5.4 10 ^3/uL Monocytes # (Auto) 0.3 0-1.3 10 ^3/uL Eosinophils # (Auto) 0.1 0-0.8 10 ^3/uL Basophils # (Auto) 0 0-0.2 10 ^3/uL Nucleated Red Blood Cells 0.1 % Sodium Level 142 136-145 mmol/L Potassium Level 4.1 3.5-5.1 mmol/L Chloride Level 107 98-107 mmol/L Carbon Dioxide Level 24 20-31 mmol/L Anion Gap 11 5-15 Blood Urea Nitrogen 19 9-23 mg/dL Creatinine 1.06 H 0.550-1.02 mg/dL Glomerular Filtration Rate Calc 51 >90 mL/min BUN/Creatinine Ratio 17.9 10.0-20.0 Serum Glucose 321 H 74-106 mg/dL Hemoglobin A1c 6.5 H <5.7 % A1C Calcium Level 11.0 H 8.7-10.4 mg/dL B-Type Natriuretic Peptide 106.23 0-100 pg/mL Assessment Acute myocardial infarction, likely anterior wall [place] unspecified decompensated cardiomyopathy, NYHA Class III Paroxysmal atrial fibrillation, Stage IIIa, rate controlled (on Pradaxa/metoprolol) Insulin-dependent diabetes mellitus Remote history of tobacco use Hypertension Dyslipidemia Obesity ERIC Plan/Recommendation (Dr. Boo) Case discussed in full detail with Dr. Boo. Scheduled for an urgent cardiac catheterization and coronary angiogram at first available. All risks and benefits of the procedure were discussed with the patient who agrees to proceed with intervention. All questions answered. Last dosage of dabigatran was administered last night for which we will hold off on heparin drip or therapeuti c Lovenox given high-risk of bleeding. In the meantime, obtain a transthoracic echocardiogram to evaluate cardiac function. Monitor ECG changes closely and notify. Trend troponin levels. Continue chest pain protocol. Further orders per clinical course. Thank you for allowing us to participate in this patient's care. Please call if you have any questions or concerns. Critical care time 50 minutes. This medical document was created using an electronic medical record system with voice recognition software and computerized dictation system. Although this document has been carefully reviewed, there might still be some phonetic and typographical errors. Occasional wrong-word or ``sound-alike substitutions may have occurred due to the inherent limitations of voice recognition software. These areas are purely typographical due to imperfections of the software programs and do not reflect any compromise in the patient's medical care. Please read the chart carefully and recognize, using context, where these substitutions have occurred. Plan discussed with: Patient, Other NYHA Physical activity limitations: Class3(Marked) ordinary (activity causes symtoms) Date of Service: Dec 03, 2024 Billing Provider: SERVANDO HERNANDEZ Cardiology Common Codes: [id number] CARE 30-74 MIN SERVANDO HERNANDEZ Dec 03, 2024 12:31
--- NOTE | 2024-12-03 12:36 | ECG ---
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
--- NOTE | 2024-12-03 12:37 | ECG ---
[facility] Test Date: 2024-12-03 Test Time: 11:38:23 Pat Name: ZAMZAM HARTSFIELD Department: [facility] ED Patient ID: [facility]-[id number] Room: 0223T Gender: F Hospital Medical Assistant: DIMITRY : 1940 Requested By: BERRY PATRICK Order Number: [id number] Reading MD: Measurements Intervals [place] Rate: 87 P: 84 SD: 267 QRS: 45 QRSD: 92 T: 58 QT: 393 QTc: 473 Interpretive Statements Sinus rhythm Prolonged SD interval Low voltage, precordial leads Probable anteroseptal infarct, old Minimal ST depression, inferior leads Please click the below link to view image of tracing.
[2024-12-03 13:22] LABS: INR 1.16 (0.9-1.15); Partial Thromboplastin Time 35.6 SEC (24.5-34.5); Prothrombin Time 12.1 sec (9.3-11.8)
[2024-12-03 13:35] LABS: Lactic Acid w/Reflex 2.6 mmol/L (0.4-2.0)
[2024-12-03 14:18] LABS: Triglycerides 94 mg/dL (< 150)
[2024-12-03 14:19] LABS: Cholesterol 117 mg/dL (< 200); HDL Cholesterol 49 mg/dL (40-59)
[2024-12-03] MEDS: ALBUTEROL SULF 2.5 MG/0.5ML(0.5%) NEB SOLN NEB SCH (14:57)
[2024-12-03] MEDS: IPRATROPIUM BROM 0.5 MG/2.5ML INH SOL NEB SCH (14:57)
[2024-12-03] MEDS: IODIXANOL 320MG/ML 100ML BTL IV ONE (16:06)
--- NOTE | 2024-12-03 23:36 | DVHINCON2 ---
Date Seen: Dec 03, 2024 Referring Physician MD Lorenzo Reason for Consultation SOB History of Present Illness This is an 84-year-old female with a past medical history of paroxysmal atrial fibrillation on Pradaxa b.i.d./metoprolol, hypertension, dyslipidemia, insulin- dependent diabetes mellitus, obstructive sleep apnea, lymphedema, remote history of tobacco use including 13 pack-years, and obesity who presented to the [facility] room via EMS with a complaint of shortness of breath since last night at 10:00 p.m.. The patient complains of a sudden onset of shortness of breath associated with substernal pressure radiating to the throat area and associated with nausea. States initial symptoms developed approximately two months ago but had gotten progressively worse during the past couple of days. He follows up in the outpatient setting with the primary general engineer undergoing a nonischemic Cardiolite stress test two weeks ago. She has undergone multiple 12 lead electrocardiogram revealing sinus rhythm with progressive global ST segment changes. Troponin levels are trending up significantly. Chest x-ray shows cardiomegaly with mild pulmonary vascular congestion. Patient was admitted to the hospital. I am asked to consult on this patient. Past Medical History Past medical history reviewed. No other significant than mentioned above. Past Surgical History Past Surgical history reviewed. No other significant than mentioned above. Family History: Myasthenia gravis G8 MOTHER Allergies: Coded Allergies: NO KNOWN ALLERGIES (Unverified , 12/03/24) Home Meds Reported Medications Lisinopril (Lisinopril) 20 Mg Tab, 1 TAB PO DAILY 12/03/24 Metoprolol Tartrate (LOPRESSOR TABLET) 50 Mg Tb, 1 TAB PO BID 12/03/24 Atorvastatin Calcium (ATORVASTATIN CALCIUM) 20 Mg Tab, 1 TAB PO DAILY 12/03/24 Dabigatran Etexilate Mesylate (Dabigatran Etexilate) 110 Mg Cap, 110 MG PO DAILY 12/03/24 Current Medications Current Medications Medications (Trade) Dose Ordered Sig/Jorden Route PRN Reason Start Time Stop Time Status Last Admin Acetaminophen/ Hydrocodone Bitart ([place] 5/325MG Tab) 1 tab Q4HP PRN PO MODERATE PAIN (4-6 PAIN SCALE) 12/03/24 09:30 Ondansetron HCl (Zofran) 4 mg Q4HP PRN IV NAUSEA / VOMITING 12/03/24 09:30 Enoxaparin Sodium (Lovenox) 40 mg DAILY SC 12/03/24 10:00 12/03/24 09:26 DC Acetaminophen (Tylenol Tablet) 650 mg Q6HP PRN PO PAIN SCALE 1-3 OR TEMP>100.4 12/03/24 09:30 Morphine Sulfate 2 mg Q4HPRN PRN IV SEVERE PAIN (7-10 PAIN SCALE) 12/03/24 09:30 Nitroglycerin (Ntrostat Sublingual) 0.4 mg Q5MINP PRN SL FOR CHEST PAIN 12/03/24 09:30 Morphine Sulfate 2 mg Q30M PRN IV FOR CHEST PAIN 12/03/24 09:30 12/03/24 12:03 Diagnostic Test (Pha) (Accu-Chek Comfort Curve T) 1 strip ACHS 12/03/24 11:30 12/03/24 11:41 Insulin Human Regular (InsuLIN R) ACHS SC 12/03/24 11:30 Dextrose 50 ml UD PRN IV Blood Sugar LESS THAN 60 12/03/24 09:30 Atorvastatin Calcium (Lipitor) 20 mg DAILY PO 12/03/24 10:00 12/03/24 11:45 Lisinopril (Zestril Tablet) 20 mg DAILY PO 12/03/24 10:00 12/03/24 11:46 Metoprolol Tartrate (Lopressor Tablet) 50 mg BID PO 12/03/24 10:00 12/03/24 11:47 Patient Own Medication 110 mg BID PO 12/03/24 10:00 12/03/24 10:27 DC Furosemide (Lasix Injection) 40 mg DAILY IV 12/03/24 10:00 Albuterol (Ventolin Medneb) 2.5 mg Q4HWA [facility] 12/03/24 10:00 Ipratropium [place] (Atrovent Medneb) 0.5 mg Q4HWA [facility] 12/03/24 10:00 Aspirin 81 mg DAILY PO 12/03/24 10:00 12/03/24 13:54 DC Dabigatran (Pradaxa Capsule) 150 mg BID PO 12/03/24 10:27 12/03/24 11:21 DC Aspirin 81 mg DAILY PO 12/04/24 10:00 Review of Systems Constitutional: No symptom reported Ears, Nose, & Throat: No symptom reported Eyes: No symptom reported Neurological: No symptoms reported Pulmonary/Respiratory: SOB Cardiovascular: Chest pain Gastrointestinal: No symptom reported Genitourinary: No symptom reported Musculoskeletal: No symptom reported Skin: No symptom reported Psychiatric: No symptom reported Endocrine: No symptom reported Hemotologic/Lymphatic: No symptom reported Vital Signs Vital Signs Date Time Temp Pulse Resp B/P (MAP) Pulse Ox O2 Delivery O2 Flow Rate FiO2 12/03/24 13:50 97.6 91 20 125/55 95 4.0 36 97.6 12/03/24 09:59 Nasal Cannula* Physical Exam GENERAL: Alert and oriented x 3. No acute distress. Obese. EYES: PERRL, EOMI. Anicteric. HENT: Moist mucous membranes. LUNGS: Diminished bilateral breath sounds. CARDIOVASCULAR: Regular rate and rhythm. ABDOMEN: Soft, nontender and nondistended. EXTREMITIES: No edema. NEUROLOGIC: No focal neurological deficits. SKIN: Warm, dry. Labs/Diagnostic Data Labs Test 12/03/24 12:39 12/03/24 11:40 12/03/24 10:58 12/03/24 10:05 Range/Units Lactic Acid Level 2.6 *H 0.4-2.0 mmol/L Troponin I High Sensitivity 8907 *H </=34 ng/L POC Glucose 219 H 70-106 mg/dl Urine Color Light-yellow Yellow Urine Clarity Clear Clear Urine pH 5.0 5.0-9.0 Urine Specific [place] 1.013 1.001-1.035 Urine Protein Trace H Negative Urine Ketones Negative Negative Urine Blood Negative Negative /uL Urine Nitrite Negative Negative Urine Bilirubin Negative Negative Urine Urobilinogen Normal Negative mg/dL Urine Leukocyte Esterase 1+ Negative /uL Urine RBC 1 0 - 4 /hpf Urine Microscopic WBC 20 H 0-5 /HPF Urine Squamous Epithelial Cells Few <5 /hpf Urine Bacteria None seen None Seen /hpf Urine Glucose 3+ H Normal mg/dL Urine Opiates Screen Neg NEGATIVE Urine Fentanyl Screen Neg NEGATIVE Urine Barbiturates Screen Neg NEGATIVE Urine Phencyclidine Screen Neg NEGATIVE Urine Amphetamines Screen Neg NEGATIVE Urine Benzodiazepines Screen Neg NEGATIVE Urine Cocaine Screen Neg NEGATIVE Urine Cannabinoids Screen Neg NEGATIVE Prothrombin Time 12.1 H 9.3-11.8 sec Prothrombin Time INR 1.16 H 0.9-1.15 Activated Partial Thromboplast Time 35.6 H 24.5-34.5 SEC D-Dimer, Quantitative 0.39 0.0-0.49 mg/L FEU Thyroid Stimulating Hormone (TSH) 2.32 0.55-4.78 uIU/mL Test 12/03/24 06:50 Range/Units White Blood Count 6.5 4.4-10.8 10^3/uL Red Blood Count 4.16 4.0-5.20 10^6/uL Hemoglobin 11.6 L 12.2-16.2 g/dL Hematocrit 34.6 L 36.0-46.0 % Mean Corpuscular Volume 83.2 80.0-100.0 fL Mean Corpuscular Hemoglobin 27.8 L 28.0-32.0 pg Mean Corpuscular Hemoglobin Concent 33.4 32.0-36.0 g/dL Red Cell Distribution Width 15.1 H 11.8-14.3 % Platelet Count 168 140-450 10^3/uL Mean Platelet Volume 8.4 6.9-10.8 fL Neutrophils (%) (Auto) 82.7 H 37.0-80.0 % Lymphocytes (%) (Auto) 10.9 10.0-50.0 % Monocytes (%) (Auto) 4.4 0.0-12.0 % Eosinophils (%) (Auto) 1.6 0.0-7.0 % Basophils (%) (Auto) 0.4 0.0-2.0 % Neutrophils # (Auto) 5.4 1.6-8.6 10 ^3/uL Lymphocytes # (Auto) 0.7 0.4-5.4 10 ^3/uL Monocytes # (Auto) 0.3 0-1.3 10 ^3/uL Eosinophils # (Auto) 0.1 0-0.8 10 ^3/uL Basophils # (Auto) 0 0-0.2 10 ^3/uL Nucleated Red Blood Cells 0.1 % Sodium Level 142 136-145 mmol/L Potassium Level 4.1 3.5-5.1 mmol/L Chloride Level 107 98-107 mmol/L Carbon Dioxide Level 24 20-31 mmol/L Anion Gap 11 5-15 Blood Urea Nitrogen 19 9-23 mg/dL Creatinine 1.06 H 0.550-1.02 mg/dL Glomerular Filtration Rate Calc 51 >90 mL/min BUN/Creatinine Ratio 17.9 10.0-20.0 Serum Glucose 321 H 74-106 mg/dL Hemoglobin A1c 6.5 H <5.7 % A1C Calcium Level 11.0 H 8.7-10.4 mg/dL B-Type Natriuretic Peptide 106.23 0-100 pg/mL Assessment Acute myocardial infarction, likely anterior wall. De Rekha unspecified decompensated cardiomyopathy, NYHA Class III. Paroxysmal atrial fibrillation, Stage IIIa, rate controlled (on Pradaxa/metoprolol). Insulin-dependent diabetes mellitus. Remote history of tobacco use. Hypertension. Dyslipidemia. Obesity. ERIC. Plan/Recommendation I agree with your ongoing assessment and care of plan. Patient has been seen by Rochelle Galeas NP on my behalf, her and I discussed t he plan with the patient. Scheduled for an urgent cardiac catheterization and coronary angiogram at first available. All risks and benefits of the procedure were discussed with the patient who agrees to proceed with intervention. All questions answered. Last dosage of dabigatran was administered last night for which we will hold off on heparin drip or therapeutic Lovenox given high-risk of bleeding. In the meantime, obtain a transthoracic echocardiogram to evaluate cardiac function. Monitor ECG changes closely and notify. Trend troponin levels. Continue chest pain protocol. Further orders per clinical course. Additional plan as per the hospital course. Plan discussed with: Patient NYHA Physical activity limitations: Class3(Marked) ordinary Date of Service: Dec 03, 2024 Billing Provider: ZENIA CASTRO MD Cardiology Common Codes: [id number] INP/OBS CARE (High), 05900-[id number] CARE 30-74 MIN ZENIA CASTRO MD Dec 03, 2024 14:34
[2024-12-04] VITALS (24 sets, daily range): BP systolic 104–125; BP diastolic 49–76; PULSE 68–79; RESP 16–19; TEMP 97.5–98.4; O2SAT 89–100
--- NOTE | 2024-12-04 06:09 | DVH ---
CHEST RADIOGRAPH Indication: CHF Technique: Single frontal view of the chest was obtained COMPARISON: XY CHEST PORTABLE on DOS: 12/03/24, XY CHEST XRAY 1 VIEW on DOS: 09/24/24, CHEST PORTABLE o n DOS: 08/08/21, CXRP on DOS: 08/08/21 FINDINGS: Lines and Tubes: None Lungs: Interval decrease in diffuse pulmonary vascular congestion. Pleura: No effusion. No pneumothorax. Cardiomediastinal contours: Unremarkable Bones: Unremarkable IMPRESSION: 1. Interval decrease in diffuse pulmonary vascular congestion. 2. No evidence of acute cardiopulmonary process.
[2024-12-04 06:17] LABS: Hematocrit 34.9 % (36.0-46.0); Hemoglobin 11.4 g/dL (12.2-16.2); Mean Corpuscular Hemoglobin 27.4 pg (28.0-32.0); Mean Corpuscular Volume 83.9 fL (80.0-100.0); Nucleated Red Blood Cells % 0.1 %
[2024-12-04 06:33] LABS: Alanine Aminotransferase 34 U/L (7-40); Alkaline Phosphatase 98 U/L (46-116); Anion Gap 6 (5-15); BUN/Creatinine Ratio 21.1 (10.0-20.0); Blood Urea Nitrogen 23 mg/dL (9-23); Carbon Dioxide 30 mmol/L (20-31); Chloride 107 mmol/L (98-107); Glucose 80 mg/dL (74-106); Potassium 4.5 mmol/L (3.5-5.1); Sodium 143 mmol/L (136-145)
[2024-12-04 06:34] LABS: Albumin 3.7 g/dL (3.2-4.8); Bilirubin, Total 0.7 mg/dL (0.2-1.0); Calcium 10.7 mg/dL (8.7-10.4); Total Protein 5.6 g/dL (5.7-8.2)
[2024-12-04] MEDS: HEPARIN SODIUM (PORCINE) 5000 UNITS/ML 1ML VIAL ONE (09:26)
[2024-12-04] MEDS: VERAPAMIL 2.5MG/ML INJ 2ML VIAL IV ONE (09:26)
[2024-12-04] MEDS: ANGIOMAX 250 MG VIAL IV ONE (09:26)
[2024-12-04] MEDS: SODIUM CHL 0.9% 0 ML ONE (09:27)
[2024-12-04] MEDS: fentaNYL CITRATE 100 MCG/2 ML VL ONE (09:27)
[2024-12-04] MEDS: MIDAZOLAM HCL 2MG/2ML 2ml VIAL (1mg/ml) ONE (09:27)
[2024-12-04] MEDS: IODIXANOL 320MG/ML 100ML BTL IV ONE ×2 (09:30→11:42)
[2024-12-04] MEDS: LIDOCAINE 2%HCL (LOCAL ANESTH.) INJ 20ML MDV ONE (10:31)
--- NOTE | 2024-12-04 12:59 | ECG ---
[facility] Test Date: 2024-12-03 Test Time: 12:07:06 Pat Name: [facility] Department: Respiratoy Room: 0223T A Gender: F Bi Analyst: SOHAM : 1940 Requested By: SERVANDO HERNANDEZ Order Number: [id number] Reading MD: Adan Olmstead Measurements Intervals [place] Rate: 92 P: 0 AR: 0 QRS: 64 QRSD: 101 T: 0 QT: 373 QTc: 462 Interpretive Statements Normal sinus rhythm Low voltage, precordial leads Anteroseptal infarct, old Nonspecific repol abnormality, lateral leads Electronically Signed On 12-08-2024 21:38:40 PDT by Adan Olmstead Please click the below link to view image of tracing.
--- NOTE | 2024-12-04 14:23 | DVHSR ---
APPROVED REPORT EXAM: Two-dimensional and M-mode echocardiogram with Doppler and color Doppler. Blood Pressure: 178/79 mmHg INDICATION SOB RISK FACTORS Height: 5' 9", Weight: 189 DIMENSIONS LVDd4.5 (3.8-5.7cm)LA (2D)4.3 (1.9-4.0cm)Aortic Root3.4 (2.0-3.7cm) LVDs3.5 (2.5-4.0cm)LA (MM) (1.9-4.0cm)Aortic Cusp Exc1.8 (1.5-2.0cm) EF (%) 45.0 (55-70%)Rt. Atrium4.4 (1.9-4.0cm)Asc. Aorta3.5 cm IVSd1.4 (0.7-1.1cm)RV (D) (1.8-2.4cm) PWd1.5 (0.7-1.1cm) Mitral Valve MitralMitral Stenosis E wave0.90m/sMV Mean GR.mmHg A wave0.70m/sMV Peak GR.mmHg E/A ratio1.32D MVAcm2 Aortic Valve Aortic ValveAortic Stenosis V10.80m/Sonja Mean GR.4mmHg V21.30m/Sonja Peak GR.7mmHg LVOT Diameter2.3 (1.8-2.4cm)Doppler AVA2.56cm2 AI P 1/2 Xaob973.01ms Tricuspid Valve TR Velocity2.70m/s [id number] Conclusion ENTIRE ANTERIOR WALL,LV APEX AND DISTAL HALF OF IVS AND ANTERIOR LATERAL IS REMARKABLY HYPOKINETIC LV EF IS IN RANGE OF 35% NORMAL VALVES NO EFFUSION
--- NOTE | 2024-12-04 14:37 | DVHPNRES ---
Progress Note Date Seen: Dec 04, 2024 Resident Creating Document: KATLYN ENCISO RESIDENT Medical Necessity Reason Pt with a Central, PICC or Fol: No Subjective Review of Systems 84-year-old female who presented to the emergency room via EMS with a chief complaint of shortness of breath since last night at 10:00 p.m.. The patient complains of a sudden onset of shortness of breath associated with substernal pressure radiating to the throat area and associated with nausea. States initial symptoms developed approximately two months ago but had gotten progressively worse during the past couple of days. He follows up in the outpatient setting with the primary vice president fixed income undergoing a nonischemic Cardiolite stress test two weeks ago. She has undergone multiple 12 lead electrocardiogram revealing sinus rhythm with progressive global ST segment changes. Troponin levels are trending up significantly. Significant medical history includes paroxysmal atrial fibrillation on Pradaxa b.i.d./metoprolol, hypertension, dyslipidemia, insulin-dependent diabetes mellitus, obstructive sleep apnea, lymphedema, remote history of tobacco use including 13 pack-years, and morbid obesity. Objective vital signs Vital Sign Date Time Temp Pulse Resp B/P (MAP) Pulse Ox O2 Delivery O2 Flow Rate FiO2 12/04/24 13:33 70 18 100 12/04/24 13:27 Nasal Cannula* 2 28 12/04/24 12:39 104/54 (71) 12/04/24 09:00 97.9 97.9 Total Intake and Output 12/03/24 12/03/24 12/04/24 15:00 23:00 07:00 Intake Total 0 ml Balance 0 ml medications Current Medications Medications Dose Ordered Sig/Jorden Route Start Time Stop Time Status Last Admin Dose Admin Acetaminophen/ Hydrocodone Bitart 1 tab Q4HP PRN PO 12/03/24 09:30 Ondansetron HCl 4 mg Q4HP PRN IV 12/03/24 09:30 Acetaminophen 650 mg Q6HP PRN PO 12/03/24 09:30 Morphine Sulfate 2 mg Q4HPRN PRN IV 12/03/24 09:30 Nitroglycerin 0.4 mg Q5MINP PRN SL 12/03/24 09:30 Morphine Sulfate 2 mg Q30M PRN IV 12/03/24 09:30 12/03/24 12:03 2 MG Diagnostic Test (Pha) 1 strip ACHS 12/03/24 11:30 12/04/24 11:30 1 STRIP Insulin Human Regular ACHS SC 12/03/24 11:30 Dextrose 50 ml UD PRN IV 12/03/24 09:30 Lisinopril 20 mg DAILY PO 12/03/24 10:00 12/03/24 11:46 20 MG Metoprolol Tartrate 50 mg BID PO 12/03/24 10:00 12/03/24 21:38 50 MG Furosemide 40 mg DAILY IV 12/03/24 10:00 Albuterol 2.5 mg Q4HWA [facility] 12/03/24 10:00 12/04/24 13:27 2.5 MG Ipratropium [place] 0.5 mg Q4HWA [facility] 12/03/24 10:00 12/04/24 13:27 0.5 MG Aspirin 81 mg DAILY PO 12/04/24 10:00 Atorvastatin Calcium 40 mg HS PO 12/04/24 22:00 Heparin Sodium/ Dextrose 250 ml @ 10 mls/hr Q24H IV 12/04/24 12:00 Examination General Appearance: Cooperative. Well developed. Morbidly Obese. In no acute distress Head Exam: Normal inspection Neck Exam: Normal inspection. Non-tender. Normal alignment Pulmonary/Respiratory: Chest non-tender. Diminished bilateral breath sounds Cardiovascular/Chest: Regular rate and rhythm. S1, S2. Sinus rhythm with progressive global ST-T segment changes. No murmurs. No JVD. Peripheral Pulses: 2+ Radial (R). 2+ Radial (L). 2+ Pedal (R). 2+ Pedal (L). Right radial artery catheterization site with no signs of bleeding/infection Abdominal Exam: Normal bowel sounds. Soft. Nontender. No hepatosplenomegaly. No masses Ankle Exam: Negative ankle edema Lower extremities: Negative lower extremity edema Neuro/Mental Status: A&O x4. Coherent Thoughts/Psych: Normal thought pattern. Appropriate mood and affect. Good judgement and insight Appearance: In no acute distress Skin Exam: Normal inspection. Normal color. Warm. Dry laboratory and microbiology Laboratory Tests 12/04/24 05:34 Test 12/04/24 05:34 Range/Units Serum Glucose 80 74-106 mg/dL Labs and/or images reviewed: Labs reviewed by me, Image(s) reviewed by me Problem List/Assessment/Plan Problem List/Assessment/Plan # Chest pain Likely ACS # Acute myocardial infarction, likely anterior wall # Decompensated cardiomyopathy, NYHA Class III -telemetry -chest pain protocol aspirin, morphine, nitroglycerin, heparin drip, beta blockers - Elevated trops -cardiology consult -underwent left heart catheterization today, pending report -Heparin drip -ECHO # Paroxysmal atrial fibrillation, Stage IIIa, rate controlled , secondary hypercoagulable state - telemetry - on Pradaxa/metoprolol #CANDE likely due to VMN -monitor lab -avoid nephrotoxic agents # Acute complicated UTI/ cystitis - evident on urinalysis - ordered urine bacterial culture - currently giving Rocephin # Insulin-dependent diabetes mellitus HbA1C 6.5 - dietary councelling - ISS # Remote history of tobacco use # Hypertension - Joann. metoprolol, lisinopril # Dyslipidemia - Lipitor # Obesity class 2- counseled regarding lifestyle modifications # ERIC- Cpap night PUD PPX not indicated VTE PPX: Heparin drip Reconciled home meds Pt is Not stable to be transferred Goals of care discussed with the patient for 20 minutes: Full code status Case discussed with Dr. Lincoln Plan discussed with: Patient, Other (Nurse) Addendum Addendum Addendum I was physically present for the hines portions of the service provided to patient by THE RESIDENT. I have reviewed the documentation, discussed the case with resident and agree with the resident's documentation except as noted. Also the patient's clinical case was discussed with the patient's nurse. This medical document was created using an electronic medical record system with computerized dictation system. Although this document has been carefully reviewed, there might still be some phonetic and typographical errors. These areas are purely typographical due to imperfections of the software programs, and do not reflect any compromise in the patient's medical care. Late signature. Date of Service: Dec 04, 2024 Billing Provider: MARSHA LINCOLN MD Common Visit Codes: [id number] INP/OBS CARE(HIGH) Secondary Visit Codes: [id number] CARE PLAN 30 MINUTES (20 minutes) KATLYN ENCISO RESIDENT Dec 04, 2024 14:37 MARSHA LINCOLN MD Dec 05, 2024 06:53
[2024-12-04] MEDS: HEPARIN SODIUM (PORCINE) 5000 UNITS/ML 1ML VIAL IV ONE (14:42)
[2024-12-04] MEDS: HEPARIN DRIP/D5W 100UNITS/ML 250 ML IV SCH ×2 (15:15→23:09)
--- NOTE | 2024-12-04 15:52 | DVHPN2 ---
Consult Progress Note Date Seen: Dec 04, 2024 Subjective Review of Systems: CVS:Normal, RESPIRATORY:Abnormal, NEURO:Normal Objective vital signs Vital Sign Date Time Temp Pulse Resp B/P (MAP) Pulse Ox O2 Delivery O2 Flow Rate FiO2 12/04/24 13:33 70 18 100 12/04/24 13:27 Nasal Cannula* 2 28 12/04/24 12:39 104/54 (71) 12/04/24 09:00 97.9 97.9 Total Intake and Output 12/03/24 12/03/24 12/04/24 15:00 23:00 07:00 Intake Total 0 ml Balance 0 ml medications Current Medications Medications Dose Ordered Sig/Jorden Route Start Time Stop Time Status Last Admin Dose Admin Acetaminophen/ Hydrocodone Bitart 1 tab Q4HP PRN PO 12/03/24 09:30 Ondansetron HCl 4 mg Q4HP PRN IV 12/03/24 09:30 Acetaminophen 650 mg Q6HP PRN PO 12/03/24 09:30 Morphine Sulfate 2 mg Q4HPRN PRN IV 12/03/24 09:30 Nitroglycerin 0.4 mg Q5MINP PRN SL 12/03/24 09:30 Morphine Sulfate 2 mg Q30M PRN IV 12/03/24 09:30 12/03/24 12:03 2 MG Diagnostic Test (Pha) 1 strip ACHS 12/03/24 11:30 12/04/24 11:30 1 STRIP Insulin Human Regular ACHS SC 12/03/24 11:30 Dextrose 50 ml UD PRN IV 12/03/24 09:30 Lisinopril 20 mg DAILY PO 12/03/24 10:00 12/03/24 11:46 20 MG Metoprolol Tartrate 50 mg BID PO 12/03/24 10:00 12/03/24 21:38 50 MG Furosemide 40 mg DAILY IV 12/03/24 10:00 Albuterol 2.5 mg Q4HWA NE[facility] 12/03/24 10:00 12/04/24 13:27 2.5 MG Ipratropium [place] 0.5 mg Q4HWA NEB 12/03/24 10:00 12/04/24 13:27 0.5 MG Aspirin 81 mg DAILY PO 12/04/24 10:00 Atorvastatin Calcium 40 mg HS PO 9/26/25 22:00 Heparin Sodium/ Dextrose 250 ml @ 10 mls/hr Q24H IV 12/04/24 12:00 12/04/24 15:15 10 MLS/HR Ceftriaxone Sodium 50 ml @ 100 mls/hr DAILY@09 IV 12/05/24 09:00 Examination: LUNGS:Abnormal (Diminished), CVS:Normal, NEURO:Normal laboratory and microbiology Laboratory Tests 12/04/24 05:34 Test 12/04/24 05:34 Range/Units Serum Glucose 80 74-106 mg/dL Problem List/Assessment/Plan Problem List/Assessment/Plan Acute anterior wall myocardial infarction De Rekha unspecified decompensated cardiomyopathy, NYHA Class III Paroxysmal atrial fibrillation, Stage IIIa, rate controlled (on Pradaxa/metoprolol) Insulin-dependent diabetes mellitus Remote history of tobacco use Hypertension Dyslipidemia Obesity ERIC Plan/Recommendation (Dr. Boo) Case discussed in full detail with Dr. Boo. The patient underwent a cardiac catheterization and coronary angiogram revealing left main disease for which the patient will be referred to [facility] for Impella Device Assisted high-risk PCI. A transthoracic echocardiogram revealed entire anterior wall, LV apex, and distal half of IVS with the anterior wall lateral remarkably hypokinetic including an LVEF of 35%. Initiate heparin drip per pharmacy protocol. Continue single antiplatelet therapy and lipid lowering agent. Thank you for allowing us to participate in this patient's care. Please call if you have any questions or concerns. This medical document was created using an electronic medical record system with voice recognition software and computerized dictation system. Although this document has been carefully reviewed, there might still be some phonetic and typographical errors. Occasional wrong-word or ``sound-alike substitutions may have occurred due to the inherent limitations of voice recognition software. These areas are purely typographical due to imperfections of the software programs and do not reflect any compromise in the patient's medical care. Please read the chart carefully and recognize, using context, where these substitutions have occurred. Plan discussed with: Patient, Other Date of Service: Dec 04, 2024 Billing Provider: SERVANDO HERNANDEZ Cardiology Common Codes: [id number] HOSP CARE([facility] SERVANDO HERNANDEZ Dec 04, 2024 15:52
--- NOTE | 2024-12-04 16:02 | CONS ---
Pharmacy Clinical Information: HEPARIN RATE @10 ML/HR OR 1000 UNITS/HR AND NEXT APTT DRAWN @2100 12/04 PER RX PROTOCOL. 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
[2024-12-04] MEDS: HYDROcodone-ACET 5/325MG TAB PO PRN (17:39)
[2024-12-04 21:55] LABS: INR 1.17 (0.9-1.15); Prothrombin Time 12.2 sec (9.3-11.8)
[2024-12-04 21:58] LABS: Partial Thromboplastin Time 103.6 SEC (24.5-34.5)
[2024-12-04] MEDS: ATORVASTATIN 20 MG TAB PO SCH (22:18)
--- NOTE | 2024-12-04 22:26 | DVHPN2 ---
Consult Progress Note Date Seen: Dec 04, 2024 Subjective Review of Systems: CVS:Normal, RESPIRATORY:Abnormal, NEURO:Normal Other Systems: Patient was seen and evaluated in follow up. Patient is s/p [facility], tolerated procedure well. Patient is pending transfer to [place]. Telemetry reviewed. Objective vital signs Vital Sign Date Time Temp Pulse Resp B/P (MAP) Pulse Ox O2 Delivery O2 Flow Rate FiO2 12/04/24 13:33 70 18 100 12/04/24 13:27 Nasal Cannula* 2 28 12/04/24 12:39 104/54 (71) 12/04/24 09:00 97.9 97.9 Total Intake and Output 12/03/24 12/03/24 12/04/24 15:00 23:00 07:00 Intake Total 0 ml Balance 0 ml medications Current Medications Medications Dose Ordered Sig/Jorden Route Start Time Stop Time Status Last Admin Dose Admin Acetaminophen/ Hydrocodone Bitart 1 tab Q4HP PRN PO 12/03/24 09:30 Ondansetron HCl 4 mg Q4HP PRN IV 12/03/24 09:30 Acetaminophen 650 mg Q6HP PRN PO 12/03/24 09:30 Morphine Sulfate 2 mg Q4HPRN PRN IV 12/03/24 09:30 Nitroglycerin 0.4 mg Q5MINP PRN SL 12/03/24 09:30 Morphine Sulfate 2 mg Q30M PRN IV 12/03/24 09:30 12/03/24 12:03 2 MG Diagnostic Test (Pha) 1 strip ACHS 12/03/24 11:30 12/04/24 11:30 1 STRIP Insulin Human Regular ACHS SC 12/03/24 11:30 Dextrose 50 ml UD PRN IV 12/03/24 09:30 Lisinopril 20 mg DAILY PO 12/03/24 10:00 12/03/24 11:46 20 MG Metoprolol Tartrate 50 mg BID PO 12/03/24 10:00 12/03/24 21:38 50 MG Furosemide 40 mg DAILY IV 12/03/24 10:00 Albuterol 2.5 mg Q4HWA NEB 12/03/24 10:00 12/04/24 13:27 2.5 MG Ipratropium [place] 0.5 mg Q4HWA NEB 12/03/24 10:00 12/04/24 13:27 0.5 MG Aspirin 81 mg DAILY PO 12/04/24 10:00 Atorvastatin Calcium 40 mg HS PO 12/04/24 22:00 Heparin Sodium/ Dextrose 250 ml @ 10 mls/hr Q24H IV 12/04/24 12:00 12/04/24 15:15 10 MLS/HR Ceftriaxone Sodium 50 ml @ 100 mls/hr DAILY@09 IV 12/05/24 09:00 Examination: LUNGS:Abnormal ((Diminished), CVS:Normal, NEURO:Normal laboratory and microbiology Laboratory Tests 12/04/24 05:34 Test 12/04/24 05:34 Range/Units Serum Glucose 80 74-106 mg/dL Problem List/Assessment/Plan Problem List/Assessment/Plan Problem list Acute anterior wall myocardial infarction. De Rekha unspecified decompensated cardiomyopathy, NYHA Class III. Paroxysmal atrial fibrillation, Stage IIIa, rate controlled (on Pradaxa/metoprolol). Insulin-dependent diabetes mellitus. Remote history of tobacco use. Hypertension. Dyslipidemia. Obesity. ERIC. Plan/Recommendation Continued all current supportive medical care. Patient has been seen by Rochelle Galeas NP on my behalf, her and I discussed the plan with the patient. Patient's case was discussed with me. The patient underwent a cardiac catheterization and coronary angiogram revealing left main disease for which the patient will be referred to [facility] for Impella Device Assisted high-risk PCI. A transthoracic echocardiogram revealed entire anterior wall, LV apex, and distal half of IVS with the anterior wall lateral remarkably hypokinetic including an LVEF of 35%. Initiate heparin drip per pharmacy protocol. Continue single antiplatelet therapy and lipid lowering agent. Additional plan as per the hospital course. Plan discussed with: Patient Date of Service: Dec 04, 2024 Billing Provider: ZENIA CASTRO MD Cardiology Common Codes: [id number] [facility] ZENIA CASTRO MD Dec 04, 2024 16:05
[2024-12-05] VITALS (17 sets, daily range): BP systolic 90–134; BP diastolic 45–72; PULSE 18–98; RESP 16–18; TEMP 97.4–98.4; O2SAT 85–100
--- NOTE | 2024-12-05 05:40 | DVHOP ---
DATE OF SURGERY: 12/04/2024 TECHNIQUE PERFORMED: * Emergency case. * Ultrasound of the right radial artery. * Management of conscious sedation. * Ultrasound-guided insertion of 6-Armenian arterial line in the right radial artery. * Left heart cath. * Left ventriculogram. * False Pass selective left and right coronary artery angiography. ASSISTANTS: Assisted by our staff over here are Fritz Anthony, Rosa, and Amrit. COMPLICATIONS: None. INDICATIONS: The patient has an acute [id number] myocardial infarction and noted that the patient has come with shortness of breath, sudden onset; chest pressure. DESCRIPTION OF PROCEDURE: The patient had been admitted for cardiac catheterization. In a standard manner, the patient have been explained, brought to the lab. The right radial area thoroughly cleaned with soap and Betadine. Lidocaine was given. A 6-Armenian arterial line had been placed in a standard manner. We had put a TIG catheter after giving radial artery cocktail of 100 mcg of nitroglycerin, 2.5 mg of verapamil, 2000 units of heparin. A TIG catheter 5-Armenian 4-0 was passed and left coronary angio done. With the help of JR4 catheter, the right coronary angio done. With the help of the TIG catheter, the left heart cath and left ventriculogram were done in the right anterior oblique view with a total of 15 mL of dye and the procedure had been completed in standard manner. IMPRESSION: * The left main distally is narrowed, 95% and KATHRYN grade 3 flow has been noted. * Left anterior descending artery in its mid region is narrowed, 60%. * Circumflex artery is a very large dominant artery and distally narrowed 50%. * The right coronary artery is a nondominant artery, normal. * Ejection fraction in the range of 40% plus. Mild global hypokinesis. * Slightly dilated left ventricle. CONCLUSION: * The study has revealed critical distal left main stenosis, 95%. * Left anterior descending artery in its mid region 60% narrow. * Circumflex optimized arteries are large dominant artery and distally narrowed 50%. * The right coronary artery is normal, nondominant. PLAN OF ACTION: At this time, the patient was advised to transfer back to her contracted facility of the [facility] and she is already 84 years of age, she will need Impella coronary intervention. Kevin Boo MD MP/JOSE JUAN/ABIGAIL TID: [id number] RECEIPT: [id number] [facility]
--- NOTE | 2024-12-05 06:54 | DVHPN2 ---
Subjective Continues to complain of shortness of breath and chest pain Reviewed: Care Plan, H&P, Labs, Medications, Previous Orders, Radiology, Other (Consultation) Changes from previous H/P or p: No Changes Objective Vitals Vital Signs Date Time Temp Pulse Resp B/P (MAP) Pulse Ox O2 Delivery O2 Flow Rate FiO2 12/05/24 05:00 98.0 73 17 129/72 (91) 97 98.0 12/04/24 23:05 Nasal Cannula* 3 32 Intake/Output Intake and Output 12/05/24 07:00 Intake Total 1555 ml Output Total 500 ml Balance 1055 ml Intake Oral 1555 ml Output Urine Total 500 ml # Voids 2 # Bowel Movements 1 General Appearance: Alert, Oriented X3, Cooperative, mild distress, Other (Morbidly obese) HEENT: Atraumatic Lungs: Other (Decreased air entry bilaterally with scattered crackles) Cardiovascular: Regular rate, Normal S1, Normal S2, No murmurs Abdomen: Normal bowel sounds, Soft, No tenderness Extremities: Other (Trace pitting edema; right radial artery catheterization site with no signs of bleeding/infection) Neuro: Cranial nerves 3-12 NL Psych/Mental Status: Mental status NL, Mood NL Medications Current Medications Medications Dose Ordered Sig/Jorden Route Start Time Stop Time Status Last Admin Dose Admin Acetaminophen/ Hydrocodone Bitart 1 tab Q4HP PRN PO 12/03/24 09:30 12/05/24 06:15 1 TAB Ondansetron HCl 4 mg Q4HP PRN IV 12/03/24 09:30 Acetaminophen 650 mg Q6HP PRN PO 12/03/24 09:30 Morphine Sulfate 2 mg Q4HPRN PRN IV 12/03/24 09:30 Nitroglycerin 0.4 mg Q5MINP PRN SL 12/03/24 09:30 Morphine Sulfate 2 mg Q30M PRN IV 12/03/24 09:30 12/03/24 12:03 2 MG Diagnostic Test (Pha) 1 strip ACHS 12/03/24 11:30 12/05/24 06:05 1 STRIP Insulin Human Regular ACHS SC 12/03/24 11:30 Dextrose 50 ml UD PRN IV 12/03/24 09:30 Lisinopril 20 mg DAILY PO 12/03/24 10:00 12/03/24 11:46 20 MG Metoprolol Tartrate 50 mg BID PO 12/03/24 10:00 12/03/24 21:38 50 MG Furosemide 40 mg DAILY IV 12/03/24 10:00 Albuterol 2.5 mg Q4HWA [facility] 12/03/24 10:00 12/04/24 23:05 2.5 MG Ipratropium [place] 0.5 mg Q4HWA [facility] 12/03/24 10:00 12/04/24 23:05 0.5 MG Aspirin 81 mg DAILY PO 12/04/24 10:00 Atorvastatin Calcium 40 mg HS PO 12/04/24 22:00 12/04/24 22:18 40 MG Ceftriaxone Sodium 50 ml @ 100 mls/hr DAILY@09 IV 12/05/24 09:00 Heparin Sodium/ Dextrose 250 ml @ 7 mls/hr Q24H IV 12/04/24 23:00 12/04/24 23:09 7 MLS/HR Laboratory Results Laboratory Tests 12/04/24 05:34 Coagulation Test 12/04/24 21:02 Prothrombin Time 12.2 sec (9.3-11.8) H Prothrombin Time INR 1.17 (0.9-1.15) H Activated Partial Thromboplast Time 103.6 SEC (24.5-34.5) *H Urinalysis Test 12/03/24 10:58 Urine Color Light-yellow (Yellow) Urine Clarity Clear (Clear) Urine pH 5.0 (5.0-9.0) Urine Specific [place] 1.013 (1.001-1.035) Urine Protein Trace (Negative) H Urine Ketones Negative (Negative) Urine Blood Negative /uL (Negative) Urine Nitrite Negative (Negative) Urine Bilirubin Negative (Negative) Urine Urobilinogen Normal mg/dL (Negative) Urine Leukocyte Esterase 1+ /uL (Negative) Urine RBC 1 /hpf (0 - 4) Urine Microscopic WBC 20 /HPF (0-5) H Urine Squamous Epithelial Cells Few /hpf (<5) Urine Bacteria None seen /hpf (None Seen) Urine Glucose 3+ mg/dL (Normal) H Labs and/or images reviewed: Labs reviewed by me, Image(s) reviewed by me Assessment/Plan Assessment/Plan Covering: An 84-year-old female patient with multiple comorbidities who presented to the emergency department with chest pain and shortness of breath. Details as below. For further details please refer to EMR. Acute hypoxic respiratory failure due to pulmonary congestion secondary to de Rekha diastolic and systolic decompensation heart failure due to acute myocardial infarction Acute myocardial infarction, likely anterior wall De Rekha diastolic and systolic decompensated cardiomyopathy, NYHA Class III Paroxysmal atrial fibrillation, Stage IIIa, rate controlled (on Pradaxa/metoprolol) Type 2 diabetes mellitus; insulin-dependent Remote history of tobacco use Hypertensive heart disease with de Rekha diastolic and systolic decompensated heart failure Dyslipidemia Morbid obesity ERIC on CPAP Underwent left heart catheterization with the results as below To continue heparin infusion during transfer to [facility] To continue oxygen therapy during transfer to [facility] Continue aspirin and statin To continue on telemetry during transfer to [facility] Was under the care and management of cardiology during admission Will be transferred to [facility] for further cardiovascular intervention; stable to transfer as per cardiology; transfer paperwork was filled and signed by the moonlighting resident Left cardiac catheterization on December 04, 2024: "CONCLUSION: * The study has revealed critical distal left main stenosis, 95%. * Left anterior descending artery in its mid region 60% narrow. * Circumflex optimized arteries are large dominant artery and distally narrowed 50%. * The right coronary artery is normal, nondominant. PLAN OF ACTION: At this time, the patient was advised to transfer back to her contracted facility of the [place] and she is already 84 years of age, she will need Impella coronary intervention" Late Entry. This medical document was created using an electronic medical record system with computerized dictation system. Although this document has been carefully reviewed, there might still be some phonetic and typographical errors. These areas are purely typographical due to imperfections of the software programs, and do not reflect any compromise in the patient's medical care. Plan discussed with: Patient, Other (Nurse) Date of Service: Dec 05, 2024 Billing Provider: MARSHA OCAMPO MD Common Visit Codes: [id number] INP/OBS CARE(HIGH) MARSHA OCAMPO MD Dec 05, 2024 06:54
[2024-12-05 07:43] LABS: Alanine Aminotransferase 27 U/L (7-40); Albumin 3.9 g/dL (3.2-4.8); Alkaline Phosphatase 94 U/L (46-116); Anion Gap 7 (5-15); BUN/Creatinine Ratio 23.7 (10.0-20.0); Carbon Dioxide 30 mmol/L (20-31); Chloride 102 mmol/L (98-107); Potassium 4.3 mmol/L (3.5-5.1); Sodium 139 mmol/L (136-145); Total Protein 6.0 g/dL (5.7-8.2)
[2024-12-05 07:44] LABS: Bilirubin, Total 0.9 mg/dL (0.2-1.0); Blood Urea Nitrogen 28 mg/dL (9-23); Calcium 10.9 mg/dL (8.7-10.4); Glucose 126 mg/dL (74-106)
[2024-12-05 07:47] LABS: INR 1.04 (0.9-1.15); Prothrombin Time 11.0 sec (9.3-11.8)
[2024-12-05 07:51] LABS: Partial Thromboplastin Time 80.6 SEC (24.5-34.5)
[2024-12-05] MEDS: HEPARIN DRIP/D5W 100UNITS/ML 250 ML IV SCH ×2 (08:07→17:12)
--- NOTE | 2024-12-05 08:12 | CONS ---
Pharmacy Clinical Information: HEPARIN DRIP @0621 APTT = 80.6 - NO BOLUS, REDUCE DOSE BY 200 UNITS (FROM 700 TO 500 U/HR) NEXT APTT SCHEDULED @1400 PER RX PROTOCOL CONFIRMED AND READ WITH RN [facility] Dec 05, 2024 08:11
[2024-12-05 15:06] LABS: INR 1.14 (0.9-1.15); Partial Thromboplastin Time 34.8 SEC (24.5-34.5); Prothrombin Time 11.9 sec (9.3-11.8)
[2024-12-05] MEDS ORDERED: HEPARIN DRIP/D5W 100UNITS/ML 250 ML IV SCH (16:00)
--- NOTE | 2024-12-05 16:02 | CONS ---
Pharmacy Clinical Information: HEPARIN DRIP @1422 APTT= 34.8 - NO BOLUS, INCREASE RATE BY 200 UNITS/HR NEXT APTT DRAW SCHEDULED @2200 PER RX PROTOCOL CONFIRMED AND READ BACK WITH RN RICHARD ALANIS [facility] RESIDENT Dec 05, 2024 16:02
[2024-12-05] MEDS ORDERED: ACETAMINOPHEN 325 MG TAB PO PRN (16:15)
[2024-12-05] MEDS: HEPARIN SODIUM (PORCINE) 5000 UNITS/ML 1ML VIAL IV ONE (17:11)
--- NOTE | 2024-12-05 19:22 | DVHPN2 ---
Progress Note - Dictate Date Seen: Dec 05, 2024 Medical Necessity Reason Pt with a Central, PICC or Fol: No Subjective Patient was seen and evaluated in follow-up. Patient underwent emergency left heart cath, little traverse selective left and right coronary artery angiography. The study has revealed critical distal left main stenosis, 95%. Left anterior descending artery in its mid region 60% narrow. Circumflex optimized arteries are large dominant artery and distally narrowed 50%. The right coronary artery is normal, nondominant. At this time, the patient was advised to transfer back to her contracted facility of the [place] and she is already 84 years of age, she will need Impella coronary intervention. Patient maintained on heparin drip. BUN 28, COMPUT[employer]AMINER 1.18. Telemetry reviewed. vital signs Vital Sign Date Time Temp Pulse Resp B/P (MAP) Pulse Ox O2 Delivery O2 Flow Rate FiO2 12/05/24 18:18 75 18 100 12/05/24 18:12 Nasal Cannula* 3 32 12/05/24 16:19 97.7 102/45 (64) 97.7 Total Intake and Output 12/04/24 12/04/24 12/05/24 15:00 23:00 07:00 Intake Total 1555 ml Output Total 500 ml Balance 1055 ml medications Current Medications Medications Dose Ordered Sig/Jorden Route Start Time Stop Time Status Last Admin Dose Admin Acetaminophen/ Hydrocodone Bitart 1 tab Q4HP PRN PO 12/03/24 09:30 12/05/24 06:15 1 TAB Ondansetron HCl 4 mg Q4HP PRN IV 12/03/24 09:30 Acetaminophen 650 mg Q6HP PRN PO 12/03/24 09:30 Morphine Sulfate 2 mg Q4HPRN PRN IV 12/03/24 09:30 Nitroglycerin 0.4 mg Q5MINP PRN SL 12/03/24 09:30 Morphine Sulfate 2 mg Q30M PRN IV 12/03/24 09:30 12/03/24 12:03 2 MG Diagnostic Test (Pha) 1 strip ACHS 12/03/24 11:30 12/05/24 17:09 1 STRIP Insulin Human Regular ACHS SC 12/03/24 11:30 Dextrose 50 ml UD PRN IV 12/03/24 09:30 Lisinopril 20 mg DAILY PO 12/03/24 10:00 12/05/24 08:29 20 MG Metoprolol Tartrate 50 mg BID PO 12/03/24 10:00 12/05/24 08:30 50 MG Furosemide 40 mg DAILY IV 12/03/24 10:00 12/05/24 08:30 40 MG Albuterol 2.5 mg Q4HWA [facility] 12/03/24 10:00 12/05/24 18:12 2.5 MG Ipratropium [place] 0.5 mg Q4HWA [facility] 12/03/24 10:00 12/05/24 18:12 0.5 MG Aspirin 81 mg DAILY PO 12/04/24 10:00 12/05/24 08:30 81 MG Atorvastatin Calcium 40 mg HS PO 12/04/24 22:00 12/04/24 22:18 40 MG Ceftriaxone Sodium 50 ml @ 100 mls/hr DAILY@09 IV 12/05/24 09:00 12/05/24 08:29 100 MLS/HR Acetaminophen 650 mg Q6HP PRN PO 12/05/24 16:15 UNV Heparin Sodium/ Dextrose 250 ml @ 8 mls/hr Q24H IV 12/05/24 16:45 12/05/24 17:12 8 MLS/HR objective GENERAL: Alert and oriented x 3. No acute distress. Obese. EYES: PERRL, EOMI. Anicteric. HENT: Moist mucous membranes. LUNGS: Diminished bilateral breath sounds. CARDIOVASCULAR: Regular rate and rhythm. ABDOMEN: Soft, nontender and nondistended. EXTREMITIES: No edema. NEUROLOGIC: No focal neurological deficits. SKIN: Warm, dry. laboratory and microbiology Laboratory Tests 12/05/24 06:21 12/04/24 05:34 Test 12/05/24 06:21 Range/Units Serum Glucose 126 H 74-106 mg/dL Problem List Acute anterior wall myocardial infarction. De Rekha unspecified decompensated cardiomyopathy, NYHA Class III. Paroxysmal atrial fibrillation, Stage IIIa, rate controlled (on Pradaxa/metoprolol). Insulin-dependent diabetes mellitus. Remote history of tobacco use. Hypertension. Dyslipidemia. Obesity. ERIC. Assessment/Plan Continued all current supportive medical care. Morphine and [place] for pain management. Aspirin, Lipitor, Metoprolol. IV antibiotics as ordered. Heparin drip per pharmacy. Diuretics with Lasix. Lisinopril. Additional plan as per the hospital course. A total of 25 minutes was spent reviewing the patient record, examining the patient, making a diagnostic and therapeutic plan, discussing this plan with medical personnel, following up on diagnostic studies and following the patient for clinical stability excluding any and all procedures. At least 50% of this time was spent in direct, [id number] contact. Plan discussed with: Patient ZENIA CASTRO MD Dec 05, 2024 18:32
--- NOTE | 2024-12-05 21:44 | DVHDS2 ---
Discharge Summary Date of Admission Dec 03, 2024 at 09:20 Date of Discharge: Dec 05, 2024 Admitting Diagnosis Chest pain and shortness of breath Wounds: Right radial catheterization site with no signs of bleeding/infection Labs/Diagnostic Data: Laboratory Results Test 12/05/24 17:07 12/05/24 14:22 12/05/24 06:21 12/04/24 05:34 POC Glucose 145 mg/dl (70-106) Prothrombin Time 11.9 sec (9.3-11.8) Prothrombin Time INR 1.14 (0.9-1.15) Activated Partial Thromboplast Time 34.8 SEC (24.5-34.5) Sodium Level 139 mmol/L (136-145) Potassium Level 4.3 mmol/L (3.5-5.1) Chloride Level 102 mmol/L (98-107) Carbon Dioxide Level 30 mmol/L (20-31) Anion Gap 7 (5-15) Blood Urea Nitrogen 28 mg/dL (9-23) Creatinine 1.18 mg/dL (0.550-1.02) Glomerular Filtration Rate Calc 45 mL/min (>90) BUN/Creatinine Ratio 23.7 (10.0-20.0) Serum Glucose 126 mg/dL (74-106) Calcium Level 10.9 mg/dL (8.7-10.4) Total Bilirubin 0.9 mg/dL (0.2-1.0) Aspartate Amino Transferase (AST) 117 U/L (13-40) Alanine Aminotransferase (ALT) 27 U/L (7-40) Alkaline Phosphatase 94 U/L (46-116) Total Protein 6.0 g/dL (5.7-8.2) Albumin 3.9 g/dL (3.2-4.8) White Blood Count 10.5 10^3/uL (4.4-10.8) Red Blood Count 4.17 10^6/uL (4.0-5.20) Hemoglobin 11.4 g/dL (12.2-16.2) Hematocrit 34.9 % (36.0-46.0) Mean Corpuscular Volume 83.9 fL (80.0-100.0) Mean Corpuscular Hemoglobin 27.4 pg (28.0-32.0) Mean Corpuscular Hemoglobin Concent 32.7 g/dL (32.0-36.0) Red Cell Distribution Width 15.4 % (11.8-14.3) Platelet Count 204 10^3/uL (140-450) Mean Platelet Volume 8.4 fL (6.9-10.8) Neutrophils (%) (Auto) 84.0 % (37.0-80.0) Lymphocytes (%) (Auto) 7.0 % (10.0-50.0) Monocytes (%) (Auto) 8.1 % (0.0-12.0) Eosinophils (%) (Auto) 0.7 % (0.0-7.0) Basophils (%) (Auto) 0.2 % (0.0-2.0) Neutrophils # (Auto) 8.8 10 ^3/uL (1.6-8.6) Lymphocytes # (Auto) 0.7 10 ^3/uL (0.4-5.4) Monocytes # (Auto) 0.8 10 ^3/uL (0-1.3) Eosinophils # (Auto) 0.1 10 ^3/uL (0-0.8) Basophils # (Auto) 0 10 ^3/uL (0-0.2) Nucleated Red Blood Cells 0.1 % Test 12/03/24 15:19 12/03/24 14:31 12/03/24 10:58 12/03/24 10:05 Troponin I High Sensitivity 17515 ng/L (</=34) Lactic Acid Level 1.7 mmol/L (0.4-2.0) Urine Color Light-yellow (Yellow) Urine Clarity Clear (Clear) Urine pH 5.0 (5.0-9.0) Urine Specific [place] 1.013 (1.001-1.035) Urine Protein Trace (Negative) Urine Ketones Negative (Negative) Urine Blood Negative /uL (Negative) Urine Nitrite Negative (Negative) Urine Bilirubin Negative (Negative) Urine Urobilinogen Normal mg/dL (Negative) Urine Leukocyte Esterase 1+ /uL (Negative) Urine RBC 1 /hpf (0 - 4) Urine Microscopic WBC 20 /HPF (0-5) Urine Squamous Epithelial Cells Few /hpf (<5) Urine Bacteria None seen /hpf (None Seen) Urine Glucose 3+ mg/dL (Normal) Urine Opiates Screen Neg (NEGATIVE) Urine Fentanyl Screen Neg (NEGATIVE) Urine Barbiturates Screen Neg (NEGATIVE) Urine Phencyclidine Screen Neg (NEGATIVE) Urine Amphetamines Screen Neg (NEGATIVE) Urine Benzodiazepines Screen Neg (NEGATIVE) Urine Cocaine Screen Neg (NEGATIVE) Urine Cannabinoids Screen Neg (NEGATIVE) D-Dimer, Quantitative 0.39 mg/L FEU (0.0-0.49) Triglycerides Level 94 mg/dL (< 150) Cholesterol Level 117 mg/dL (< 200) LDL Cholesterol 53 mg/dL (< 100) HDL Cholesterol 49 mg/dL (40-59) Thyroid Stimulating Hormone (TSH) 2.32 uIU/mL (0.55-4.78) Test 12/03/24 06:50 Hemoglobin A1c 6.5 % A1C (<5.7) B-Type Natriuretic Peptide 106.23 pg/mL (0-100) Other Laboratory Tests 12/05/24 06:21 12/04/24 05:34 Brief Hx & Hospital Course: Covering: An 84-year-old female patient with multiple comorbidities who presented to the emergency department with chest pain and shortness of breath. Details as below. For further details please refer to EMR. Acute hypoxic respiratory failure due to pulmonary congestion secondary to de Rekha diastolic and systolic decompensation heart failure due to acute myocardial infarction Acute myocardial infarction, likely anterior wall [place] diastolic and systolic decompensated cardiomyopathy, NYHA Class III Paroxysmal atrial fibrillation, Stage IIIa, rate controlled (on Pradaxa/metoprolol) Type 2 diabetes mellitus; insulin-dependent Remote history of tobacco use Hypertensive heart disease with de Rekha diastolic and systolic decompensated heart failure Dyslipidemia Morbid obesity ERIC on CPAP Underwent left heart catheterization with the results as below To continue heparin infusion during transfer to [facility] To continue oxygen therapy during transfer to [facility] Continue aspirin and statin To continue on telemetry during transfer to [facility] Was under the care and management of cardiology during admission Will be transferred to [facility] for further cardiovascular intervention; stable to transfer as per cardiology; transfer paperwork was filled and signed by the moonlighting resident Left cardiac catheterization on December 04, 2024: "CONCLUSION: * The study has revealed critical distal left main stenosis, 95%. * Left anterior descending artery in its mid region 60% narrow. * Circumflex optimized arteries are large dominant artery and distally narrowed 50%. * The right coronary artery is normal, nondominant. PLAN OF ACTION: At this time, the patient was advised to transfer back to her contracted facility of the [facility] and she is already 84 years of age, she will need Impella coronary intervention" Late Entry. This medical document was created using an electronic medical record system with computerized dictation system. Although this document has been carefully reviewed, there might still be some phonetic and typographical errors. These areas are purely typographical due to imperfections of the software programs, and do not reflect any compromise in the patient's medical care. Consults/Reason for consult Cardiology for chest pain Operations or Procedures Left heart catheterization on December 04, 2024 Condition at Discharge: Stable Final Diagnosis/Problems List Acute hypoxic respiratory failure due to pulmonary congestion secondary to de Rekha diastolic and systolic decompensation heart failure due to acute myocardial infarction Acute myocardial infarction, likely anterior wall [place] diastolic and systolic decompensated cardiomyopathy, NYHA Class III Paroxysmal atrial fibrillation, Stage IIIa, rate controlled (on Pradaxa/metoprolol) Type 2 diabetes mellitus; insulin-dependent Remote history of tobacco use Hypertensive heart disease with de Rekha diastolic and systolic decompensated heart failure Dyslipidemia Morbid obesity ERIC on CPAP Discharge Disposition: Acute Care Facility ([facility]) Discharge Instruct/Medications Diet: Consistent carbohydrate, Cardiac 2g Na,low cholest Activity: No Restrictions, As Tolerated Follow Up/Referral: According to [facility] Medications: To continue heparin infusion and oxygen therapy during transfer Scheduled Atorvastatin Calcium (Atorvastatin Calcium), 1 TAB PO DAILY, (Reported) Dabigatran Etexilate Mesylate (Dabigatran Etexilate), 110 MG PO DAILY, (Reported) Lisinopril (Lisinopril), 1 TAB PO DAILY, (Reported) Metoprolol Tartrate (Lopressor Tablet), 1 TAB PO BID, (Reported) Discharge Statement: "Patient was advised to return to the ER or call 911 if any headaches, dizziness, shortness of breath, chest pain, abdominal pain, bleeding, fevers, or worsening of medical condition. Patient was counseled about treatment plan, medications, possible side effects, patientverbalized understanding. All questions were answered to the best of my ability. This discharge took greater then 30 minutes in planning, reviewing documentation, counseling the patient, and discussing with other team members." Date of Service: Dec 05, 2024 Billing Provider: MARSHA OCAMPO MD Common Visit Codes: 01790-NKK/OBS DISCH DAY >30min MARSHA OCAMPO MD Dec 05, 2024 21:44
== END 2024-12-05 21:12 | disposition short-term general hospital (02) | DRG 280 ==
LOC: ER 06:22 → EDBD 06:22 → OVERFLOW 09:20 → TELE-CENTR 11:59
PROVIDERS: ADMIT Internal Medicine; ATTEND Internal Medicine
PROC: 03HY32Z Insertion of Monitoring Device into Upper Artery, Percutaneous Approach (ICD-10-PCS; principal; 2024-12-04)
PROC: 4A023N7 Measurement of Cardiac Sampling and Pressure, Left Heart, Percutaneous Approach (ICD-10-PCS; 2024-12-04)
PROC: B211YZZ Fluoroscopy of Multiple Coronary Arteries using Other Contrast (ICD-10-PCS; 2024-12-04)
PROC: B215YZZ Fluoroscopy of Left Heart using Other Contrast (ICD-10-PCS; 2024-12-04)
DX: I21.09 ST elevation (STEMI) myocardial infarction involving other coronary artery of anterior wall (principal); I50.43 Acute on chronic combined systolic (congestive) and diastolic (congestive) heart failure; J96.01 Acute respiratory failure with hypoxia; I42.9 Cardiomyopathy, unspecified; N17.9 Acute kidney failure, unspecified; E11.9 Type 2 diabetes mellitus without complications; E83.52 Hypercalcemia; E78.5 Hyperlipidemia, unspecified; G47.33 Obstructive sleep apnea (adult) (pediatric); I48.0 Paroxysmal atrial fibrillation; E66.01 Morbid (severe) obesity due to excess calories; I11.0 Hypertensive heart disease with heart failure; Z82.0 Family history of epilepsy and other diseases of the nervous system; Z80.3 Family history of malignant neoplasm of breast; Z79.4 Long term (current) use of insulin; Z79.899 Other long term (current) drug therapy; Z68.28 Body mass index [BMI] 28.0-28.9, adult
CPT/HCPCS: 36415; 36600; 71045; 80048; 80053; 80061; 80307; 81001; 82805; 82962; 83036; 83605; 83880; 84443; 84484; 85025; 85379; 85610; 85730; 86850; 86900; 86901; 93005; 93306; 93458; 94640; 99152; 99291; G0378; J2250; J2405; Q9967